=== PATIENT | female | born 1995 | race Caucasian/White ===

== ENCOUNTER 2016-12-30 14:05 | Emergency (ER) | payer SELFPAY ==
[~2016-12-30] VITALS: Ht 160 cm; Wt 70.5 kg
[~2016-12-30 14:05] MED LIST: ACET-1256 PO; FERR1TAB23 PO; IBUP-1050 PO
[2016-12-30 14:15] VITALS: TEMP 36.9; Ht 160 cm; Wt 70.5 kg
[2016-12-30 15:11] LABS: URINE APPEARANCE CLEAR (CLEAR); URINE BILIRUBIN NEG (NEG); URINE COLOR YELLOW; URINE EPITHELIAL CELL AUTO >30 /lpf (0-5); URINE NITRITE NEG (NEG); URINE PH 5.5 (4.5-7.5); URINE SPECIFIC GRAVITY 1.026 (1.000-1.030); UROBILINOGEN NEG (NEG); ZZUR CULT IF INDIC CLEAN CATCH YES
[2016-12-30 15:13] LABS: MANUAL MICROSCOPIC REQUIRED? NO; REVIEW REQ? NO
[2016-12-30] MEDS ORDERED: ELMCR EXT (15:51)
[2016-12-30] MEDS ORDERED: NITR1CAP16 PO (15:51)
--- NOTE | 2016-12-30 15:53 | EMERGENCY ROOM VISIT NOTE ---
History First contact with patient: 14:20 Chief Complaint: ILLNESS Stated Complaint: RASH, TIGHTNESS OF THROAT, SABRA., CLOGGED EARS History of Present Illness The patient is a 21 year old female who presents to the Emergency Room with multiple complaints. The patient reports that she has a rash on the inside of her right arm. She reports she also has several owens between her fingers. She reports that she was treated for scabies one month ago, and her symptoms now are similar. The patient also reports that she has had scratchiness in her throat, nasal congestion and a feeling of clogged ears. The symptoms have been ongoing for the past 2 days. She denies any cough, difficulty breathing or swallowing, neck pain or headache. Patient also reports that she feels she may have a yeast infection. She has had vaginal discharge for the past few days as well as some pain with urination. She has a history of severe UTIs and is unsure if this could be a vaginal infection or urinary tract infection. The patient denies any abdominal pain, nausea, vomiting, or changes in bowel movements. She denies any fevers/chills. Review of Systems A complete 10-point Review of Systems was discussed with the patient, with pertinent positives and negatives listed in the History of Present Illness. All remaining Review of Systems questions can be considered negative unless otherwise specified. Past Medical/Surgical History Medical Problems: (1) Drug overdose (2) Dysuria (3) Urinary tract infection (4) Urinary tract infection Surgical Problems: (1) Hx of tonsillectomy Family History Cancer Diabetes mellitus Gallbladder disease Heart disease Hypertension Kidney disease Kidney stones Lung disease Seizures Social History Smoking Status: Current Every Day Smoker Alcohol Use: none Drug Use: none Marital Status: in relationship Housing Status: lives with significant other Occupation Status: employed Current/Historical Medications Scheduled Levonorgestrel (Iud) (Mirena), 1 DOSE IU CONTINOUS Nitrofurantoin Monohyd Macro (Macrobid), 1 CAP PO BID Permethrin 5% (Elimite 5%), 0 EXT UD Allergies Coded Allergies: Penicillins (Verified Allergy, Severe, ANAPHYLAXIS, 12/30/16) Adhesives (Verified Allergy, Unknown, HIVES, 12/30/16) Doxycycline (Unverified Adverse Reaction, Intermediate, Vomiting, 12/30/16) Uncoded Allergies: BETH (Allergy, Mild, GI SYMPTOMS, 04/20/15) Physical Exam Vital Signs Date Time Temp Pulse Resp B/P Pulse Ox O2 Delivery O2 Flow Rate FiO2 12/30/16 16:04 70 18 112/72 97 12/30/16 14:15 36.9 94 18 120/80 100 Physical Exam VITALS: Vitals are noted on the nurse's note and reviewed by myself. Vital signs stable. GENERAL: This is a 21-year-old female, in no acute distress, nondiaphoretic, well-developed well-nourished. SKIN: There are multiple erythematous lesions in the webspaces of the fingers. There are several urticarial lesions in the right antecubital fossa. HEENT: Normocephalic. PERRLA. EOMI. Nares patent. Mucous membranes moist. Neck is supple without nuchal rigidity. HEART: Regular rate and rhythm without murmurs gallops or rubs. LUNGS: Clear to auscultation bilaterally without wheezes, rales or rhonchi. ABDOMEN: Positive bowel sounds x 4. Soft, nontender to palpation. PELVIC: External genitalia unremarkable. No lesions. There is a moderate amount of whitish discharge within the vaginal vault. No evidence of cervicitis. NEURO: Patient was alert and oriented to person place and time. Medical Decision & Procedures Laboratory Results Test 12/30/16 14:55 12/30/16 15:25 Urine Color YELLOW Urine Appearance CLEAR (CLEAR) Urine pH 5.5 (4.5-7.5) Urine Specific Reading 1.026 (1.000-1.030) Urine Protein NEG (NEG) Urine Glucose (UA) NEG (NEG) Urine Ketones NEG (NEG) Urine Occult Blood NEG (NEG) Urine Nitrite NEG (NEG) Urine Bilirubin NEG (NEG) Urine Urobilinogen NEG (NEG) Urine Leukocyte Esterase SMALL (NEG) Urine WBC (Auto) >30 /hpf (0-5) Urine RBC (Auto) 0-4 /hpf (0-4) Urine Hyaline Casts (Auto) 10-30 /lpf (0-5) Urine Epithelial Cells (Auto) >30 /lpf (0-5) Urine Bacteria (Auto) 2+ (NEG) Urine Test NEG (NEG) Date/Time Source Procedure Growth Status 12/30/16 15:25 Vaginal Swab Trichomonas Preparation - Final Complete Medical Decision Differential diagnosis includes scabies, urticaria, eczema, psoriasis, UTI, vaginal candidiasis, bacterial vaginosis, STI, urinary tract infection, strep pharyngitis, among others. The patient was evaluated as above. She presents with multiple complaints. She does appear to have scabies and will be prescribed permethrin for a second treatment. She has upper respiratory symptoms consistent with an upper respiratory and was informed that this is likely viral. Pelvic exam was performed and cultures were sent. The patient has evidence of a urinary tract infection and urinalysis is consistent with infection. She will be placed on Macrobid pending culture. The patient was instructed to follow-up with her primary care provider and MECHANICAL MAINTENANCE TECHNICIAN. She verbalized understanding of my assessment and treatment plan and was discharged home in good condition. Impression Primary Impression: UTI (urinary tract infection) Additional Impressions: Scabies Vaginal discharge Departure Information Dispostion Home / Self-Care Condition GOOD Prescriptions Nitrofurantoin Monohyd Macro (MACROBID) 100 Mg Cap 1 CAP PO BID for 5 Days, #10 CAP Prov: Julia Garnica PA-C 12/30/16 Permethrin 5% (Elimite 5%) 180 Appln/60 Gm Cr 0 EXT UD, #1 TUBE APPLY HEAD TO FOOT - LEAVE ON 8-14 HR - WASH OFF Prov: Julia Garnica PA-C 12/30/16 Referrals Josh Avalos, D.O. (PCP) Patient Instructions My [facility] Additional Instructions You have been treated in the Emergency Department for a Urinary Tract Infection (UTI). We will call you with culture results if they become positive in the next 1-2 days. You have been prescribed Macrobid to be taken twice daily. This is an antibiotic. All antibiotics have the potential to cause diarrhea. Stop this medication and contact a medical provider if you were to develop any significant adverse side effects including: wheezing, shortness of breath, passing out, vomiting, or a diffuse rash. Always take antibiotics as directed and COMPLETE the ENTIRE course regardless of the improvement of your symptoms. Use the permethrin as prescribed. Drink plenty of water and stay well hydrated. As with any trip to the Emergency Department, you should follow-up with your Primary Care Provider from today's visit. Return to the emergency department if your symptoms persist despite treatment plan outlined above or if the following symptoms occur: increased fevers, chills , low back pain, nausea/vomiting, or blood in your urine. Problem Qualifiers Primary Impression: UTI (urinary tract infection) Urinary tract infection type: site unspecified Hematuria presence: without hematuria Qualified Codes: N39.0 - Urinary tract infection, site not specified
[2016-12-30 16:04] VITALS: BP 112/72; PULSE 70; O2SAT 97
[2017-01-01 21:57] LABS: CHLAMYDIA TRACH RNA*** NOT DETECTED (NOT DETECTED); GC (NEIS GONORRHOEAE)RNA** DETECTED (NOT DETECTED)
[2017-07-24] MEDS ORDERED: LEVOIUD IU (15:52)
== END 2016-12-30 16:31 | disposition home or self-care (01) ==
LOC: C.EDB 14:06 → C.EDD 16:31
DX: N39.0 Urinary tract infection, site not specified (principal); B86 Scabies; N89.8 Other specified noninflammatory disorders of vagina; F17.210 Nicotine dependence, cigarettes, uncomplicated

== ENCOUNTER 2017-01-02 21:27 | Emergency (ER) | payer SELFPAY ==
[~2017-01-02] VITALS: Ht 160 cm; Wt 71.4 kg
[~2017-01-02 21:27] MED LIST changes: -ACET-1256 PO; +ELMCR EXT; -FERR1TAB23 PO; -IBUP-1050 PO; +NITR1CAP16 PO
[2017-01-02 21:32] VITALS: TEMP 36.9; Ht 160 cm; Wt 71.4 kg
[2017-01-02] MEDS ORDERED: METRONIDAZOLE 250 MG TAB PO STA (21:55)
[2017-01-02] MEDS ORDERED: AZITHROMYCIN 250 MG TAB PO STA (21:55)
[2017-01-02] MEDS ORDERED: CEFTRIAXONE SOD 350MG/ML 1 GM VIAL IM STA (21:55)
[2017-01-02] MEDS ORDERED: ONDANSETRON 4MG OD TAB PO ONE (22:00)
--- NOTE | 2017-01-02 22:04 | EMERGENCY ROOM VISIT NOTE ---
ED Visit Note First contact with patient: 21:37 CHIEF COMPLAINT: Called back to the emergency department HISTORY OF PRESENT ILLNESS: This 21-year-old female patient presents to the emergency department ambulatory for treatment regarding her culture results. The patient was seen here three days ago. She was diagnosed with a urinary tract infection and put on Macrobid. The urine culture grew out pansensitive Escherichia coli. The patient was also positive for gonorrhea. Additionally, she was positive for bacterial vaginosis. The patient returns for treatment. REVIEW OF SYSTEMS: A 10 system review of systems was completed with positives and pertinent negatives listed in the HPI. ALLERGIES: Adhesives, doxycycline, penicillin-the patient has never truly had penicillin but describes it as an allergy due to a family sensitivity of penicillin and the patient's family member states she has had Keflex in the past without any difficulty MEDICATIONS: Macrobid currently PMH: None SOCIAL HISTORY: The patient is a smoker PHYSICAL EXAM: VITALS: Vitals are noted on the nurse's note and reviewed by myself. Vital signs stable. GENERAL: This is a 21-year-old female, in no acute distress, nondiaphoretic, well-developed well-nourished. CARDIAC: Regular rate and rhythm. No rubs, murmurs or gallops LUNGS: Clear to auscultation bilaterally without wheezes, rales or rhonchi EMERGENCY DEPARTMENT COURSE: The patient was seen and examined. Previous visits were reviewed. The patient is afebrile. She presents to the emergency department for treatment of gonorrhea and bacterial vaginosis. She lists an allergy to penicillin but has tolerated Keflex in the past and does not have a true penicillin allergy but lists that as an allergy due to a family history of penicillin allergy. Therefore, she was given 250 mg IM Rocephin, 1 g oral Zithromax and will be started on Flagyl. She requests to have Flagyl pills instead of the MetroGel. She should follow-up with her family doctor next week. She should return with worsening symptoms. Problem List Medical Problems: (1) Drug overdose Status: Resolved (2) Dysuria Status: Resolved (3) Urinary tract infection Status: Resolved (4) Urinary tract infection Status: Resolved Surgical Problems: (1) Hx of tonsillectomy Status: Resolved Current/Historical Medications Scheduled Levonorgestrel (Iud) (Mirena), 1 DOSE IU CONTINOUS Metronidazole (Flagyl), 500 MG PO BID Nitrofurantoin Monohyd Macro (Macrobid), 1 CAP PO BID Allergies Coded Allergies: Penicillins (Verified Allergy, Severe, ANAPHYLAXIS, 01/02/17) Adhesives (Verified Allergy, Unknown, HIVES, 01/02/17) Doxycycline (Unverified Adverse Reaction, Intermediate, Vomiting, 01/02/17) Uncoded Allergies: BETH (Allergy, Mild, GI SYMPTOMS, 04/20/15) Vital Signs Date Time Temp Pulse Resp B/P Pulse Ox O2 Delivery O2 Flow Rate FiO2 01/02/17 22:40 76 18 122/75 98 01/02/17 21:32 36.9 88 18 134/86 99 Room Air Medications Administered Medications (Trade) Dose Ordered Sig/Radha Route Start Time Stop Time Status Last Admin Dose Admin Azithromycin (Zithromax Tab) 1,000 mg NOW STAT PO 01/02/17 21:55 01/02/17 21:57 DC 01/02/17 22:07 1,000 MG Ceftriaxone Sodium (Rocephin Im) 250 mg NOW STAT IM 01/02/17 21:55 01/02/17 21:57 DC 01/02/17 22:08 250 MG Ondansetron HCl (Zofran Odt) 4 mg ONE ONCE PO 01/02/17 22:00 01/02/17 22:01 DC 01/02/17 22:07 4 MG Metronidazole (Flagyl Tab) 500 mg NOW STAT PO 01/02/17 21:55 01/02/17 21:57 DC 01/02/17 22:07 500 MG Departure Information Impression Primary Impression: Gonorrhea Additional Impressions: Bacterial vaginitis Urinary tract infection Dispostion Home / Self-Care Condition GOOD Prescriptions Metronidazole (Flagyl) 500 Mg Tab 500 MG PO BID for 7 Days, #14 TAB Prov: Leida Espinosa PA-C 01/02/17 Referrals Josh Avalos, D.OEunice (PCP) Patient Instructions ED Gonorrhea Female, ED Vaginosis Bacterial, My [facility] Additional Instructions Continue the Macrobid until finished Flagyl every 12 hours for 7 days Notify your sexual contacts Return with any worsening symptoms; otherwise follow up with your family doctor or MATERIALS HANDLER next week Problem Qualifiers
[2017-01-02] MEDS ORDERED: METR-163 PO (22:36)
[2017-01-02 22:40] VITALS: BP 122/75; PULSE 76; O2SAT 98
--- NOTE | 2017-01-03 11:14 | Pharmacy Progress Note ---
ED Pharmacist Culture FollowUp Date of Service: Jan 03, 2017. Genital culture grew N gonorrhoeae, N gonorrhoeae RNA also detected. Patient returned to the ER on 01/02/17 for Rocephin 250mg IM x 1 and Azithromycin 1gm PO x 1. No further action required at this time. Genital culture also grew gardnerella vaginalis and the provider who had seen her felt she had symptoms consistent w/ BV; she was discharge with Rx for Flagyl 500mg TID x 7 days. No further action required. Urine cx grew E coli. This organism was sensitive to the Macrobid she was prescribed (100mg PO BID x 5 days). No further action required.
[2017-07-24] MEDS ORDERED: LEVOIUD IU (15:52)
== END 2017-01-02 22:29 | disposition home or self-care (01) ==
LOC: C.EDB 21:30 → C.EDD 22:29
DX: A54.9 Gonococcal infection, unspecified (principal); N76.0 Acute vaginitis; N39.0 Urinary tract infection, site not specified; F17.210 Nicotine dependence, cigarettes, uncomplicated; Z79.2 Long term (current) use of antibiotics

== ENCOUNTER 2017-03-11 13:11 | Emergency (ER) | payer BC, OTHER ==
[~2017-03-11] VITALS: Ht 160 cm; Wt 73.8 kg
[2017-03-11 13:13] VITALS: TEMP 37.2; Ht 160 cm; Wt 73.8 kg
[2017-03-11] MEDS ORDERED: IBUP-1050 PO (13:20)
[2017-03-11] MEDS ORDERED: ACET-1256 PO (13:21)
[2017-03-11] MEDS ORDERED: SODIUM CHLORIDE 0.9% 1000ML 1,000 ML IV STA (13:29)
[2017-03-11] MEDS ORDERED: ONDANSETRON INJ 2 MG/ML 2 ML VIAL IV STA (13:29)
[2017-03-11 14:01] LABS: BASO % 0.3 %; BASO ABS # 0.03 K/uL (0-0.2); COMPLETE YES; EOS % 0.3 %; HEMATOCRIT 43.3 % (37-47); IG% 0.2 %; LYMPH % 16.4 %; LYMPH ABS # 1.71 K/uL (1.2-3.4); MEAN CELL VOLUME 92.1 fL (80-100); MEAN CORPUSCULAR HEMOGLOBIN 31.9 pg (25-34); MEAN CORPUSCULAR HGB CONC 34.6 g/dl (32-36); MEAN PLATELET VOLUME 9.8 fL (7.4-10.4); NEUT % 70.8 %; PLATELET COUNT 257 K/uL (130-400)
[2017-03-11 14:21] LABS: BUN/CREATININE RATIO 9.7 (10-20); CALCIUM 8.6 mg/dl (8.5-10.1); CREATININE 0.92 mg/dl (0.60-1.20); POTASSIUM 3.8 mmol/L (3.5-5.1)
[2017-03-11 14:23] LABS: ALB/GLOB RATIO 1.1 (0.9-2)
--- NOTE | 2017-03-11 14:59 | DIAGNOSTIC IMAGING REPORT ---
CHEST 2 VIEWS ROUTINE CLINICAL HISTORY: cough CHEST PRESSURE COMPARISON STUDY: 08/31/2016 FINDINGS: The cardiac and mediastinal contours are normal. There is no evidence of focal pulmonary consolidation. There is no evidence of failure. No pleural effusions are visualized.[ IMPRESSION: No active disease in the chest. Electronically signed by: Ayden Huff M.D. 03/11/2017 2:57 PM Dictated Date/Time: 03/11/2017 2:56 PM
[2017-03-11 16:15] VITALS: BP 165/85; PULSE 98; O2SAT 98
--- NOTE | 2017-03-11 16:18 | EMERGENCY ROOM VISIT NOTE ---
History First contact with patient: 13:17 Chief Complaint: FLU LIKE SX Stated Complaint: COUGH,BODY ACHES,SORE THROAT,NAUSEA History of Present Illness The patient is a 21 year old female who presents to the Emergency Room with complaints of flulike symptoms. She reports that she has had sore throat, cough , chest tightness, nausea, diarrhea and body aches for the past 5 days. She states that she had to leave work today due to symptoms. She did not receive a flu vaccine this year. She denies any sick contacts. She states she has had fevers up to 102F. Has been taking ibuprofen and Tylenol for her symptoms and states she last took Tylenol just prior to arrival. She denies any chest pain, abdominal pain, vomiting, headache or neck pain. Review of Systems A complete 10-point Review of Systems was discussed with the patient, with pertinent positives and negatives listed in the History of Present Illness. All remaining Review of Systems questions can be considered negative unless otherwise specified. Past Medical/Surgical History Medical Problems: (1) Drug overdose (2) Dysuria (3) Urinary tract infection (4) Urinary tract infection Surgical Problems: (1) Hx of tonsillectomy Family History Cancer Diabetes mellitus Gallbladder disease Heart disease Hypertension Kidney disease Kidney stones Lung disease Seizures Social History Smoking Status: Current Every Day Smoker Alcohol Use: none Drug Use: none Marital Status: in relationship Housing Status: lives with significant other Occupation Status: employed Current/Historical Medications Scheduled Acetaminophen (Tylenol), Unknown Dose PO DAILY Ibuprofen (Advil), 800 MG PO DAILY Levonorgestrel (Iud) (Mirena), 1 DOSE IU CONTINOUS Allergies Coded Allergies: Penicillins (Verified Allergy, Severe, ANAPHYLAXIS, 03/11/17) PER PROVIDER NOTE 01/02/17, PT NEVER WAS GIVEN PCN DUE TO FAMILY H/O ANAPHYLAXIS. SHE HAS TOLERATED KEFLEX AND ROCEPHIN Adhesives (Verified Allergy, Unknown, HIVES, 03/11/17) Doxycycline (Unverified Adverse Reaction, Intermediate, Vomiting, 03/11/17) Uncoded Allergies: BETH (Allergy, Mild, GI SYMPTOMS, 04/20/15) Physical Exam Vital Signs Date Time Temp Pulse Resp B/P Pulse Ox O2 Delivery O2 Flow Rate FiO2 03/11/17 16:15 98 18 165/85 98 Room Air 03/11/17 13:13 37.2 112 20 128/84 94 Room Air Physical Exam VITALS: Vitals are noted on the nurse's note and reviewed by myself. Vital signs stable. GENERAL: This is a 21-year-old female, in no acute distress, nondiaphoretic, well-developed well-nourished. SKIN: The skin was without rashes. HEAD: Normocephalic atraumatic. EARS: External auditory canals clear, tympanic membranes pearly mullen without erythema or effusion bilaterally. EYES: Pupils equal round and reactive to light and accommodation. Conjunctivae without injection, sclerae without icterus. NOSE: Patent, turbinates without inflammation or discharge. MOUTH: Mucous membranes moist. Tonsils are surgically absent. Pharynx without erythema or exudate. NECK: Supple without nuchal rigidity. No lymphadenopathy. HEART: Regular rate and rhythm without murmurs gallops or rubs. LUNGS: Clear to auscultation bilaterally without wheezes, rales or rhonchi. No retractions or accessory muscle use. ABDOMEN: Soft, nontender to palpation. NEURO: Patient was alert and oriented to person place and time. Medical Decision & Procedures ER Provider Diagnostic Interpretation: CHEST 2 VIEWS ROUTINE CLINICAL HISTORY: cough CHEST PRESSURE COMPARISON STUDY: 08/31/2016 FINDINGS: The cardiac and mediastinal contours are normal. There is no evidence of focal pulmonary consolidation. There is no evidence of failure. No pleural effusions are visualized.[ IMPRESSION: No active disease in the chest. Laboratory Results 03/11/17 13:40 Red Blood Count 4.70, Mean Corpuscular Volume 92.1, Mean Corpuscular Hemoglobin 31.9, Mean Corpuscular Hemoglobin Concent 34.6, Mean Platelet Volume 9.8, Neutrophils (%) (Auto) 70.8, Lymphocytes (%) (Auto) 16.4, Monocytes (%) (Auto) 12.0, Eosinophils (%) (Auto) 0.3, Basophils (%) (Auto) 0.3, Neutrophils # (Auto ) 7.36, Lymphocytes # (Auto) 1.71, Monocytes # (Auto) 1.25, Eosinophils # (Auto ) 0.03, Basophils # (Auto) 0.03 03/11/17 13:40 Test 03/11/17 13:40 03/11/17 13:50 White Blood Count 10.40 K/uL (4.8-10.8) Red Blood Count 4.70 M/uL (4.2-5.4) Hemoglobin 15.0 g/dL (12.0-16.0) Hematocrit 43.3 % (37-47) Mean Corpuscular Volume 92.1 fL (80-100) Mean Corpuscular Hemoglobin 31.9 pg (25-34) Mean Corpuscular Hemoglobin Concent 34.6 g/dl (32-36) Platelet Count 257 K/uL (130-400) Mean Platelet Volume 9.8 fL (7.4-10.4) Neutrophils (%) (Auto) 70.8 % Lymphocytes (%) (Auto) 16.4 % Monocytes (%) (Auto) 12.0 % Eosinophils (%) (Auto) 0.3 % Basophils (%) (Auto) 0.3 % Neutrophils # (Auto) 7.36 K/uL (1.4-6.5) Lymphocytes # (Auto) 1.71 K/uL (1.2-3.4) Monocytes # (Auto) 1.25 K/uL (0.11-0.59) Eosinophils # (Auto) 0.03 K/uL (0-0.5) Basophils # (Auto) 0.03 K/uL (0-0.2) RDW Standard Deviation 44.3 fL (36.4-46.3) RDW Coefficient of Variation 13.0 % (11.5-14.5) Immature Granulocyte % (Auto) 0.2 % Immature Granulocyte # (Auto) 0.02 K/uL (0.00-0.02) Anion Gap 6.0 mmol/L (3-11) Est Creatinine Clear Calc Drug Dose 92.3 ml/min Estimated GFR () 102.4 Estimated GFR (Non- 88.4 BUN/Creatinine Ratio 9.7 (10-20) Calcium Level 8.6 mg/dl (8.5-10.1) Total Bilirubin 0.4 mg/dl (0.2-1) Aspartate Amino Transf (AST/SGOT) 11 U/L (15-37) Alanine Aminotransferase (ALT/SGPT) 23 U/L (12-78) Alkaline Phosphatase 97 U/L (45-117) Total Protein 7.3 gm/dl (6.4-8.2) Albumin 3.8 gm/dl (3.4-5.0) Globulin 3.5 gm/dl (2.5-4.0) Albumin/Globulin Ratio 1.1 (0.9-2) Monoscreen NEG (NEG) Influenza Type A Antigen Neg for Influ A (NEG) Influenza Type B Antigen Neg for Influ B (NEG) Medications Administered Medications (Trade) Dose Ordered Sig/Radha Route Start Time Stop Time Status Last Admin Dose Admin Sodium Chloride (Nss 1000ml) 1,000 ml @ 999 mls/hr Q1H1M STAT IV 03/11/17 13:29 03/11/17 14:29 DC 03/11/17 13:53 999 MLS/HR Ondansetron HCl (Zofran Inj) 4 mg NOW STAT IV 03/11/17 13:29 03/11/17 13:30 DC 03/11/17 13:53 4 MG ED Course The patient was evaluated as above. Labs were drawn and IV access was obtained. Patient was medicated with 1 L normal saline solution and 4 mg Zofran. Chest x-ray was performed and read by radiology as above. Patient was reevaluated and felt much better. Findings were discussed with the patient. Discharge instructions were reviewed with the patient. The patient verbalized understanding of my assessment and treatment plan and was discharged home in good condition. Medical Decision Differential diagnosis includes influenza, mononucleosis, pneumonia, upper respiratory infection, viral illness, among others. The patient is a 21-year-old female who presents today complaining of flulike symptoms. Labs revealed no leukocytosis, anemia or concerning electrolyte abnormalities. Monospot and influenza tests were negative. The patient was given IV fluids and Zofran with relief. She likely has a viral flulike illness. Conservative measures were discussed with the patient. Based on the patient's presentation and work up, I feel the patient is stable for outpatient treatment. The patient was educated to the emergency department for any worsening of their current condition or new/concerning symptoms. She will follow up with her primary care provider as needed. Impression Primary Impression: Influenza-like symptoms Departure Information Dispostion Home / Self-Care Condition GOOD Referrals Josh Avalos D.O. (PCP) Patient Instructions [facility] Additional Instructions Rest and drink plenty of fluids. For pain control, you can use the following [id number] medicines (if >12 yo): - Regular strength (325mg/tab) Tylenol (acetaminophen) 2 tabs every 4-6 hours as needed. Do not exceed 12 tablets in a 24 hour period. Avoid taking more than 4 grams (4000 mg) of Tylenol per day. This includes any other sources of acetaminophen you may take on a regular basis. - Regular strength (200 mg/tab) Advil (ibuprofen) 1-2 tabs every 4-6 hours as needed. Do not exceed a dose of 3200 mg per day. Follow-up with your PCP as needed.
[2017-10-05] MEDS ORDERED: LEVOIUD IU (15:52)
== END 2017-03-11 16:30 | disposition home or self-care (01) ==
LOC: C.EDB 13:12 → C.EDC 16:30
DX: R69 Illness, unspecified (principal); Z83.3 Family history of diabetes mellitus; Z82.49 Family history of ischemic heart disease and other diseases of the circulatory system; Z82.0 Family history of epilepsy and other diseases of the nervous system; F17.200 Nicotine dependence, unspecified, uncomplicated

== ENCOUNTER 2017-07-04 15:33 | Emergency (ER) | payer BC ==
[~2017-07-04] VITALS: Ht 160 cm; Wt 76.0 kg
[~2017-07-04 15:33] MED LIST changes: +ACET-1256 PO; -ELMCR EXT; +IBUP-1050 PO; -NITR1CAP16 PO
[2017-07-04 15:38] VITALS: TEMP 36.9; Ht 160 cm; Wt 76.0 kg
[2017-07-04 15:55] LABS: MANUAL MICROSCOPIC REQUIRED? NO; REVIEW REQ? NO; URINE APPEARANCE CLEAR (CLEAR); URINE BILIRUBIN NEG (NEG); URINE COLOR YELLOW; URINE EPITHELIAL CELL AUTO >30 /lpf (0-5); URINE NITRITE NEG (NEG); URINE PH 6.5 (4.5-7.5); URINE SPECIFIC GRAVITY 1.014 (1.000-1.030); UROBILINOGEN NEG (NEG); ZZUR CULT IF INDIC CLEAN CATCH YES
[2017-07-04] MEDS ORDERED: SODIUM CHLORIDE 0.9% 1000ML 1,000 ML IV STA (16:01)
[2017-07-04] MEDS ORDERED: ONDANSETRON INJ 2 MG/ML 2 ML VIAL IV STA (16:01)
--- NOTE | 2017-07-04 16:13 | EMERGENCY ROOM VISIT NOTE ---
History First contact with patient: 15:42 Chief Complaint: URINARY SYMPTOMS Stated Complaint: UTI - KIDNEY INFECTION SYMPTOMS Nursing Triage Summary: Back pain and urinary symptoms History of Present Illness The patient is a 21 year old female who presents to the Emergency Room with complaints of bilateral low back pain and urinary frequency/urgency/suprapubic discomfort has been going on for about one week. Associated nausea as well, but no vomiting. She has not tried any medications for her symptoms. She also believes she may be dehydrated, she states she has not been eating and drinking very well recently due to a in the family. Patient states she is prone to frequent UTIs and gets them about 4 times a year, her last infection was in December of this year and she believe she was treated with Bactrim. She states that she was trying to get an appointment set up with her PCP today, however her friend had a seizure so she came with her friend to the ER and decided to check in and be evaluated here. She denies any fevers or chills, chest pain, shortness of breath, dizziness or passing out, vomiting, diarrhea, blood in the urine, vaginal discharge or unusual bleeding, or rash. She reports a history of STD infections in the past, states she has not been sexually active for several months and is not concerned about any STDs at this time. Review of Systems A complete 10 point review of systems was reviewed with the patient with pertinent positives and negatives as per history of present illness. All else were negative. Past Medical/Surgical History Medical Problems: (1) Drug overdose (2) Dysuria (3) Urinary tract infection (4) Urinary tract infection Surgical Problems: (1) Hx of tonsillectomy Family History Cancer Diabetes mellitus Gallbladder disease Heart disease Hypertension Kidney disease Kidney stones Lung disease Seizures Social History Smoking Status: Current Every Day Smoker Alcohol Use: none Drug Use: none Marital Status: in relationship Housing Status: lives with significant other Occupation Status: employed Current/Historical Medications Scheduled Levonorgestrel (Iud) (Mirena), 20 MCG IU UD Sulfa/Trimethoprim (Bactrim Ds 800MG/160MG), 1 TAB PO BID Physical Exam Vital Signs Date Time Temp Pulse Resp B/P (MAP) Pulse Ox O2 Delivery O2 Flow Rate FiO2 07/04/17 19:23 96 16 111/68 95 07/04/17 18:39 82 16 102/66 95 Room Air 07/04/17 16:52 77 18 101/67 98 Room Air 07/04/17 15:38 36.9 107 16 125/90 96 Room Air Physical Exam CONSTITUTIONAL: No acute distress. Mildly dehydrated, otherwise well appearing and well nourished. Alert and oriented X 4 with normal affect. HEENT: Normocephalic, atraumatic. Pupils equal, round and reactive to light, EOMI. TMs normal. Pharynx normal. Tacky mucous membranes. NECK: Supple, full active range of motion without discomfort. RESPIRATORY: Clear to auscultation bilaterally with no wheezing, crackles, rhonchi or stridor. Equal expansion bilaterally. CARDIOVASCULAR: Tachycardia. Regular rhythm with no murmurs, rubs or gallops. Normal peripheral perfusion. No edema. GASTROINTESTINAL: Mild suprapubic tenderness, abdomen is otherwise nontender. No CVA tenderness. Soft, nondistended. Bowel sounds present in all quadrants. MUSCULOSKELETAL: Full range of motion of all joints without discomfort. INTEGUMENTARY: No rash or other significant dermatologic conditions noted. NEUROLOGIC: Cranial nerves II-XII grossly intact. No focal neurologic deficits noted. Medical Decision & Procedures Laboratory Results 07/04/17 16:10 Red Blood Count 4.99, Mean Corpuscular Volume 91.0, Mean Corpuscular Hemoglobin 31.5, Mean Corpuscular Hemoglobin Concent 34.6, Mean Platelet Volume 9.9, Neutrophils (%) (Auto) 54.8, Lymphocytes (%) (Auto) 35.5, Monocytes (%) (Auto) 6.5, Eosinophils (%) (Auto) 2.5, Basophils (%) (Auto) 0.4, Neutrophils # (Auto) 5.70, Lymphocytes # (Auto) 3.70, Monocytes # (Auto) 0.68, Eosinophils # (Auto) 0.26, Basophils # (Auto) 0.04 07/04/17 16:10 Test 07/04/17 15:40 07/04/17 16:10 Urine Color YELLOW Urine Appearance CLEAR (CLEAR) Urine pH 6.5 (4.5-7.5) Urine Specific [place] 1.014 (1.000-1.030) Urine Protein NEG (NEG) Urine Glucose (UA) NEG (NEG) Urine Ketones NEG (NEG) Urine Occult Blood NEG (NEG) Urine Nitrite NEG (NEG) Urine Bilirubin NEG (NEG) Urine Urobilinogen NEG (NEG) Urine Leukocyte Esterase SMALL (NEG) Urine WBC (Auto) 1-5 /hpf (0-5) Urine RBC (Auto) 0-4 /hpf (0-4) Urine Hyaline Casts (Auto) 1-5 /lpf (0-5) Urine Epithelial Cells (Auto) >30 /lpf (0-5) Urine Bacteria (Auto) 2+ (NEG) Urine Test NEG (NEG) White Blood Count 10.41 K/uL (4.8-10.8) Red Blood Count 4.99 M/uL (4.2-5.4) Hemoglobin 15.7 g/dL (12.0-16.0) Hematocrit 45.4 % (37-47) Mean Corpuscular Volume 91.0 fL (80-100) Mean Corpuscular Hemoglobin 31.5 pg (25-34) Mean Corpuscular Hemoglobin Concent 34.6 g/dl (32-36) Platelet Count 353 K/uL (130-400) Mean Platelet Volume 9.9 fL (7.4-10.4) Neutrophils (%) (Auto) 54.8 % Lymphocytes (%) (Auto) 35.5 % Monocytes (%) (Auto) 6.5 % Eosinophils (%) (Auto) 2.5 % Basophils (%) (Auto) 0.4 % Neutrophils # (Auto) 5.70 K/uL (1.4-6.5) Lymphocytes # (Auto) 3.70 K/uL (1.2-3.4) Monocytes # (Auto) 0.68 K/uL (0.11-0.59) Eosinophils # (Auto) 0.26 K/uL (0-0.5) Basophils # (Auto) 0.04 K/uL (0-0.2) RDW Standard Deviation 42.2 fL (36.4-46.3) RDW Coefficient of Variation 12.7 % (11.5-14.5) Immature Granulocyte % (Auto) 0.3 % Immature Granulocyte # (Auto) 0.03 K/uL (0.00-0.02) Anion Gap 5.0 mmol/L (3-11) Est Creatinine Clear Calc Drug Dose 105.0 ml/min Estimated GFR () 117.7 Estimated GFR (Non- 101.6 BUN/Creatinine Ratio 11.1 (10-20) Calcium Level 9.4 mg/dl (8.5-10.1) Medications Administered Medications (Trade) Dose Ordered Sig/Radha Route Start Time Stop Time Status Last Admin Dose Admin Ondansetron HCl (Zofran Inj) 4 mg NOW STAT IV 07/04/17 16:01 07/04/17 16:03 DC 07/04/17 16:54 4 MG Sodium Chloride 1,000 ml @ 999 mls/hr Q1H1M STAT IV 07/04/17 16:01 07/04/17 17:01 DC 07/04/17 16:54 999 MLS/HR Ketorolac Tromethamine (Toradol Inj) 15 mg NOW STAT IV 07/04/17 18:32 07/04/17 18:33 DC 07/04/17 18:38 15 MG Trimethoprim/ Sulfamethoxazole (Septra Ds 800/ 160MG Tab) 1 tab NOW STAT PO 07/04/17 18:58 07/04/17 19:00 DC 07/04/17 19:20 1 TAB Medical Decision CC: Patient presenting with complaint of bilateral low back pain and urinary symptoms Interpretation of Labs: No leukocytosis, no anemia, no significant electrolyte abnormalities, normal renal function. UA is not convincing for UTI, however given symptoms will treat and urine culture pending. Differential Diagnosis: Includes, but not limited to UTI, pyelonephritis, musculoskeletal pain, PID, STD/STI, among others. Medication Reconciliation: I attest that I have personally reviewed the patient' s current medication list. Vital signs review: I reviewed the patient's vital signs and interpret them as follows: T: Afebrile; BP: normotensive; HR: tachycardic; RR: WNL; Pulse Ox: WNL on RA. Summary: Patient was evaluated at bedside, history of physical exam performed. Patient is alert, in no acute distress, sitting calmly in the stretcher. Mild suprapubic tenderness on exam, no CVA tenderness on exam. Patient declined pelvic exam, states she is not concerned for STI. Orders were placed at bedside for basic labs, UA and culture, IV fluids for hydration, IV zofran and toradol for symptoms. Labs reviewed as above and are unremarkable. Urinalysis shows bacteria and small leuk esterase, however only small WBCs and many epithelial cells, which may represent contamination rather than a true infection. Patient reports feeling much better after IV fluids and medications, states her back pain is now gone. Tachycardia also improved. Given the patient's report of frequent UTIs and symptomatic, will treat her. I do not feel that the patient has pyelonephritis at this time, so will only dose for UTI. I did instruct her to follow up with her PCP closely and to return if her symptoms worsen, she verbalized understanding. Patient discharged home in stable condition and ambulatory. Impression Primary Impression: Symptoms of urinary tract infection Departure Information Dispostion Home / Self-Care Condition GOOD Prescriptions Sulfa/Trimethoprim (Bactrim Ds 800MG/160MG) Tab 1 TAB PO BID for 3 Days, #6 TAB Prov: Raquel Ennis CRNP 07/04/17 Referrals Josh Avalos, D.O. (PCP) Patient Instructions ED UTI Cystitis Female, My [facility] Additional Instructions You have been treated in the Emergency Department for a Urinary Tract Infection (UTI). You have been prescribed Bactrim to be taken twice a day for 3 days. This is an antibiotic. All antibiotics have the potential to cause diarrhea. Stop this medication and contact a medical provider if you were to develop any significant adverse side effects including: wheezing, shortness of breath, passing out, vomiting, or a diffuse rash. Always take antibiotics as directed and COMPLETE the ENTIRE course regardless of the improvement of your symptoms. Drink plenty of water and stay well hydrated. As with any trip to the Emergency Department, you should follow-up with your Primary Care Provider from today's visit. Return to the emergency department if your symptoms persist despite treatment plan outlined above or if the following symptoms occur: increased fevers, chills , low back pain, severe nausea/vomiting, or blood in your urine.
[2017-07-04 18:14] LABS: BASO % 0.4 %; BASO ABS # 0.04 K/uL (0-0.2); COMPLETE YES; EOS % 2.5 %; HEMATOCRIT 45.4 % (37-47); IG% 0.3 %; LYMPH % 35.5 %; MEAN CORPUSCULAR HEMOGLOBIN 31.5 pg (25-34); MEAN CORPUSCULAR HGB CONC 34.6 g/dl (32-36); MEAN PLATELET VOLUME 9.9 fL (7.4-10.4); MONO % 6.5 %; NEUT % 54.8 %; PLATELET COUNT 353 K/uL (130-400); RED BLOOD COUNT 4.99 M/uL (4.2-5.4); WHITE BLOOD COUNT 10.41 K/uL (4.8-10.8)
[2017-07-04 18:30] LABS: BUN/CREATININE RATIO 11.1 (10-20); CALCIUM 9.4 mg/dl (8.5-10.1); CREATININE 0.82 mg/dl (0.60-1.20); POTASSIUM 3.8 mmol/L (3.5-5.1)
[2017-07-04] MEDS ORDERED: KETOROLAC TROMETHAMINE 30 MG/ML VIAL IV STA (18:32)
[2017-07-04] MEDS ORDERED: SULFAMETHOXAZOLE/TRIMETHOPRIM DS 800/160MG TAB PO STA (18:58)
[2017-07-04] MEDS ORDERED: SULF800T23 PO (18:58)
[2017-07-04 19:23] VITALS: BP 111/68; PULSE 96; O2SAT 95
[2017-07-24] MEDS ORDERED: LEVOIUD IU (15:52)
== END 2017-07-04 19:24 | disposition home or self-care (01) ==
LOC: C.EDB 15:34 → C.EDD 19:24
DX: M54.5 Low back pain (principal); R35.0 Frequency of micturition; R39.15 Urgency of urination; R10.30 Lower abdominal pain, unspecified; F17.200 Nicotine dependence, unspecified, uncomplicated; Z87.440 Personal history of urinary (tract) infections; Z83.3 Family history of diabetes mellitus; Z82.49 Family history of ischemic heart disease and other diseases of the circulatory system; Z82.0 Family history of epilepsy and other diseases of the nervous system; Z84.1 Family history of disorders of kidney and ureter; R00.0 Tachycardia, unspecified

== ENCOUNTER 2017-07-24 21:45 | Emergency (ER) | payer BC, OTHER ==
[~2017-07-24] VITALS: Ht 160 cm; Wt 77.5 kg
[~2017-07-24 21:45] MED LIST changes: -ACET-1256 PO; -IBUP-1050 PO; +LEVOIUD IU
[2017-07-24 21:48] VITALS: TEMP 36.8; Ht 160 cm; Wt 77.5 kg
[2017-07-24] MEDS ORDERED: SODIUM CHLORIDE 0.9% 1000ML 1,000 ML IV STA ×2 (22:07)
[2017-07-24] MEDS ORDERED: MoRPHine SULFATE 4 MG/ML 1 ML CARP\\VIAL IV STA (22:07)
[2017-07-24] MEDS ORDERED: ONDANSETRON INJ 2 MG/ML 2 ML VIAL IV STA (22:07)
[2017-07-24] MEDS ORDERED: OPTIRAY 320 IV PRN (22:15)
[2017-07-24] MEDS ORDERED: HYDR-5688 PO (22:34)
[2017-07-24] MEDS ORDERED: BACL10TA PO (22:34)
[2017-07-24 22:43] LABS: BASO % 0.2 %; BASO ABS # 0.02 K/uL (0-0.2); COMPLETE YES; HEMATOCRIT 45.6 % (37-47); IG% 0.1 %; LYMPH % 23.7 %; LYMPH ABS # 2.57 K/uL (1.2-3.4); MEAN CORPUSCULAR HEMOGLOBIN 31.5 pg (25-34); MEAN CORPUSCULAR HGB CONC 34.6 g/dl (32-36); MEAN PLATELET VOLUME 9.7 fL (7.4-10.4); MONO % 8.5 %; NEUT % 65.5 %; PLATELET COUNT 319 K/uL (130-400); RED BLOOD COUNT 5.01 M/uL (4.2-5.4); WHITE BLOOD COUNT 10.86 K/uL (4.8-10.8)
[2017-07-24 22:47] LABS: URINE APPEARANCE CLEAR (CLEAR); URINE BILIRUBIN NEG (NEG); URINE COLOR YELLOW; URINE NITRITE NEG (NEG); URINE PH 5.5 (4.5-7.5); URINE SPECIFIC GRAVITY 1.014 (1.000-1.030); UROBILINOGEN NEG (NEG); ZZUR CULT IF INDIC CLEAN CATCH NO
[2017-07-24 22:48] LABS: MANUAL MICROSCOPIC REQUIRED? NO; REVIEW REQ? NO
[2017-07-24] MEDS ORDERED: DiphenhydrAMINE HCL 50 MG/ML VIAL IV STA (23:02)
[2017-07-24 23:06] LABS: ALKALINE PHOSPHATASE 98 U/L (45-117); ALT/SGPT 21 U/L (12-78); AST/SGOT 14 U/L (15-37); BLOOD UREA NITROGEN 8 mg/dl (7-18); BUN/CREATININE RATIO 10.1 (10-20); CALCIUM 9.5 mg/dl (8.5-10.1); CARBON DIOXIDE 25 mmol/L (21-32); CHLORIDE 107 mmol/L (98-107); CREATININE 0.79 mg/dl (0.60-1.20); GLUCOSE 96 mg/dl (70-99); SODIUM 139 mmol/L (136-145)
[2017-07-24 23:41] LABS: PREG INTERNAL NEGATIVE QC NEG CLEAR BACKGROUND; PREG INTERNAL POSITIVE QC POS CONTROL LINE
--- NOTE | 2017-07-25 00:49 | EMERGENCY ROOM VISIT NOTE ---
History First contact with patient: 21:57 Chief Complaint: ABDOMINAL PAIN Stated Complaint: PAIN RT LOWER SIDE, DIZZINESS,NAUSEA,MILD FEVER Nursing Triage Summary: Severe pain in RLQ, radiation to back. Stabbing pain. Started 1-1/2 weeks ago, progressively worse. Dizzy, nausea. Took hydrocodone for pain last night, didn' t help. Took muscle relaxer today without relief. History of Present Illness The patient is a 21 year old female who presents to the Emergency Room with complaints of right lower quadrant pain for the past few days that is steadily getting worse. Patient had intermittent abdominal pain for week and half that now localized to the right lower quadrant. Nothing makes it better or worse. Pain currently 7 out of 10. It does not radiate. Patient complains of nausea and lightheadedness. Patient denies chance for , urinary symptoms, back pain, fevers, vomiting, diarrhea, vaginal itching or discharge. Review of Systems See HPI for pertinent positives & negatives. A total of 10 systems reviewed and were otherwise negative. Past Medical/Surgical History Medical Problems: (1) Drug overdose (2) Dysuria (3) Urinary tract infection (4) Urinary tract infection Surgical Problems: (1) Hx of tonsillectomy Family History Cancer Diabetes mellitus Gallbladder disease Heart disease Hypertension Kidney disease Kidney stones Lung disease Seizures Social History Smoking Status: Current Every Day Smoker Alcohol Use: none Drug Use: none Marital Status: in relationship Housing Status: lives with significant other Occupation Status: employed Current/Historical Medications Scheduled Levonorgestrel (Iud) (Mirena), 20 MCG IU UD Scheduled PRN Baclofen (Lioresal), 10 MG PO TID PRN for Muscle Relaxer Hydrocodone/Acetaminophen 5MG/325MG ([place] 5MG/325MG), 1 TABLET PO UD PRN for Pain Physical Exam Vital Signs Date Time Temp Pulse Resp B/P (MAP) Pulse Ox O2 Delivery O2 Flow Rate FiO2 07/25/17 00:01 114/81 07/24/17 23:50 78 19 99 07/24/17 23:48 124/76 07/24/17 23:20 59 17 99 07/24/17 23:15 64 19 98 07/24/17 23:01 126/83 07/24/17 23:00 75 14 98 07/24/17 22:45 70 98 07/24/17 22:36 70 07/24/17 22:05 135/90 07/24/17 21:48 36.8 80 18 139/86 96 Room Air Physical Exam VITALS: Vitals are noted on the nurse's note and reviewed by myself. Vital signs stable. GENERAL: Pleasant female, in no acute distress, nondiaphoretic, well-developed well-nourished. SKIN: The skin was without rashes, erythema, edema, or bruising. There is no tenting of the skin. Capillary reflex less than 2 seconds. HEAD: Normocephalic atraumatic. EARS: External auditory canals clear, tympanic membranes pearly mullen without erythema or effusion bilaterally. EYES: Pupils equal round and reactive to light and accommodation. Conjunctivae without injection, sclerae without icterus. Extraocular movements intact. NOSE: Patent, turbinates without inflammation or discharge. MOUTH: Mucous membranes moist. Pharynx without erythema or exudate. Uvula midline. Airway patent. Tongue does not deviate. NECK: Supple without nuchal rigidity. No lymphadenopathy. No thyromegaly. Cervical spine is nontender. No JVD. HEART: Regular rate and rhythm without murmurs gallops or rubs. LUNGS: Clear to auscultation bilaterally without wheezes, rales or rhonchi. No dullness to percussion. No retractions or accessory muscle use. ABDOMEN: Positive bowel sounds x 4. Normal tympanic percussion. Soft, tender to palpation right lower quadrant, no CVA tenderness, without masses or organomegaly. Sandoval sign negative. No guarding or rebound tenderness. MUSCULOSKELETAL: No muscle atrophy, erythema, or edema noted. NEURO: Patient was alert and oriented to person place and time. Normal sensation to light and sharp touch. No focal neurological deficits. Medical Decision & Procedures Laboratory Results 07/24/17 22:30 Red Blood Count 5.01, Mean Corpuscular Volume 91.0, Mean Corpuscular Hemoglobin 31.5, Mean Corpuscular Hemoglobin Concent 34.6, Mean Platelet Volume 9.7, Neutrophils (%) (Auto) 65.5, Lymphocytes (%) (Auto) 23.7, Monocytes (%) (Auto) 8.5, Eosinophils (%) (Auto) 2.0, Basophils (%) (Auto) 0.2, Neutrophils # (Auto) 7.12, Lymphocytes # (Auto) 2.57, Monocytes # (Auto) 0.92, Eosinophils # (Auto) 0.22, Basophils # (Auto) 0.02 07/24/17 22:30 Test 07/24/17 22:30 White Blood Count 10.86 K/uL (4.8-10.8) Red Blood Count 5.01 M/uL (4.2-5.4) Hemoglobin 15.8 g/dL (12.0-16.0) Hematocrit 45.6 % (37-47) Mean Corpuscular Volume 91.0 fL (80-100) Mean Corpuscular Hemoglobin 31.5 pg (25-34) Mean Corpuscular Hemoglobin Concent 34.6 g/dl (32-36) Platelet Count 319 K/uL (130-400) Mean Platelet Volume 9.7 fL (7.4-10.4) Neutrophils (%) (Auto) 65.5 % Lymphocytes (%) (Auto) 23.7 % Monocytes (%) (Auto) 8.5 % Eosinophils (%) (Auto) 2.0 % Basophils (%) (Auto) 0.2 % Neutrophils # (Auto) 7.12 K/uL (1.4-6.5) Lymphocytes # (Auto) 2.57 K/uL (1.2-3.4) Monocytes # (Auto) 0.92 K/uL (0.11-0.59) Eosinophils # (Auto) 0.22 K/uL (0-0.5) Basophils # (Auto) 0.02 K/uL (0-0.2) RDW Standard Deviation 41.6 fL (36.4-46.3) RDW Coefficient of Variation 12.5 % (11.5-14.5) Immature Granulocyte % (Auto) 0.1 % Immature Granulocyte # (Auto) 0.01 K/uL (0.00-0.02) Urine Color YELLOW Urine Appearance CLEAR (CLEAR) Urine pH 5.5 (4.5-7.5) Urine Specific [place] 1.014 (1.000-1.030) Urine Protein NEG (NEG) Urine Glucose (UA) NEG (NEG) Urine Ketones NEG (NEG) Urine Occult Blood NEG (NEG) Urine Nitrite NEG (NEG) Urine Bilirubin NEG (NEG) Urine Urobilinogen NEG (NEG) Urine Leukocyte Esterase NEG (NEG) Anion Gap 7.0 mmol/L (3-11) Est Creatinine Clear Calc Drug Dose 110.1 ml/min Estimated GFR () 123.2 Estimated GFR (Non- 106.3 BUN/Creatinine Ratio 10.1 (10-20) Calcium Level 9.5 mg/dl (8.5-10.1) Total Bilirubin 0.3 mg/dl (0.2-1) Direct Bilirubin < 0.1 mg/dl (0-0.2) Aspartate Amino Transf (AST/SGOT) 14 U/L (15-37) Alanine Aminotransferase (ALT/SGPT) 21 U/L (12-78) Alkaline Phosphatase 98 U/L (45-117) Total Protein 8.1 gm/dl (6.4-8.2) Albumin 4.3 gm/dl (3.4-5.0) Lipase 94 U/L (73-393) Human Chorionic Gonadotropin, Qual NEG (NEG) Medications Administered Medications (Trade) Dose Ordered Sig/Radha Route Start Time Stop Time Status Last Admin Dose Admin Morphine Sulfate (MoRPHine SULFATE INJ) 4 mg NOW STAT IV 07/24/17 22:07 07/24/17 22:10 DC 07/24/17 22:56 4 MG Ondansetron HCl (Zofran Inj) 4 mg NOW STAT IV 07/24/17 22:07 07/24/17 22:10 DC 07/24/17 22:53 4 MG Sodium Chloride 1,000 ml @ 999 mls/hr Q1H1M STAT IV 07/24/17 22:07 07/24/17 23:07 DC 07/24/17 22:52 999 MLS/HR Sodium Chloride 1,000 ml @ 125 mls/hr Q8H STAT IV 07/24/17 22:07 07/25/17 06:06 07/24/17 22:51 125 MLS/HR Diphenhydramine HCl (Benadryl Inj) 25 mg NOW STAT IV 07/24/17 23:02 07/24/17 23:04 DC 07/24/17 23:08 25 MG ED Course Prior records/ancillary studies reviewed. Triage Nursing notes reviewed. Additional history obtained from family. The patient's history was concerning for abdominal pain. Differential diagnosis: Etiologies such as appendicitis, diverticulitis, PUD, biliary pathology, UTI, pancreatitis, obstruction, mesenteric ischemia, aortic pathology, infections, inflammatory bowel disease, renal colic, as well as others were entertained. Physical examination findings: As above. ER treatment provided: Morphine, Zofran, IV fluids. Patient got a rash from the morphine and was given Benadryl. This is a marked as an allergy. Symptoms completely resolved. On reassessment the patient felt better. Diagnostics interpreted by me: The labs revealed mild leukocytosis. Negative urine Imaging studies: CT ABDOMEN & PELVIS: Normal appendix. Colonic diverticula without diverticulitis. No GI or urinary tract obstruction. Cholecystectomy. Intrauterine device is oriented transversely within the uterus Radiologist: John Tanner M.D. Exam and history seem consistent with abdominal pain with unclear etiology. Patient did not have an acute abdomen on exam. Patient was advised to follow- up with her family care Dr. for further workup with gastroenterology if warranted. She is well-appearing. She is tolerating fluids. She is advised to follow-up family care in a few days or here in the ER sooner for abdominal pain, fevers, vomiting, worsening signs or symptoms or as needed. By the evaluation outlined above emergent etiologies such as appendicitis, diverticulitis, PUD, biliary pathology, UTI, pancreatitis, obstruction, mesenteric ischemia, aortic pathology, infections, inflammatory bowel disease, renal colic, as well as others were deemed relatively unlikely. The pt informed about the findings as listed above. All questions were answered and pleased with the treatment. Return instructions were outlined and the patient was discharged in stable condition. Referral: The patient was referred back to their primary care physician for follow-up in 2 to 3 days for a recheck of the current condition. Case reviewed by attending. Medical Decision As above Medication Reconcilliation Current Medication List: was personally reviewed by me Blood Pressure Screening Patient's blood pressure: Normal blood pressure Impression Primary Impression: Right lower quadrant abdominal pain Departure Information Dispostion Home / Self-Care Condition GOOD Referrals Josh Avalos, D.O. (PCP) Patient Instructions [facility] Additional Instructions DO NOT drive, drink alcohol, operate machinery, or perform dangerous activities today. You were given medications in the ER that can affect your ability to safely function or operate a vehicle. Do not take morphine in the future as you had a localized reaction to this. Ibuprofen(Motrin, Advil) may be used for fever or pain. Use 600mg every six hours as needed. Take with food. Avoid using more than 2400mg in a 24 hour period. Do not use 2400mg per day for more than three consecutive days without physician direction. Prolonged inappropriate use can lead to stomach upset or ulcers. (AND/OR) Acetaminophen(Tylenol) may be used for fever or pain. Use 1000mg every six hours as needed. Avoid using more than 3000mg in a 24 hour period. Zofran 4mg: Take one every six hours as needed for nausea. Avoid alcohol, operating machinery or dangerous equipment, working on ladders or roofs, DRIVING , or situations where being under the influence may be dangerous. Rest and drink plenty of fluids as tolerated. Slow sips of water or sports drinks are recommended instead of large amounts all at once. Continue current medications. Once your stomach is settled start with a clear liquid diet (jello, soup broth, etc.) and then advance as tolerated. You should avoid full, heavy meals for about 24 hrs from the time your symptoms resolved. Return to the ER immediately for worsening or persistent abdominal pain, vomiting, fevers, chest pains, difficulty breathing, black or bloody stools, worsening of your condition, or as needed. Follow up with your primary physician in 24 hours for a recheck of your current condition. Recommend follow-up with gastroenterology if abdominal pains persist.
[2017-07-25 01:00] VITALS: BP 117/93
[2017-07-25] MEDS ORDERED: ONDANSETRON HOME PACK 4MG OD TAB PO ONE (01:00)
[2017-07-25 01:01] VITALS: PULSE 63; O2SAT 99
--- NOTE | 2017-07-25 07:16 | DIAGNOSTIC IMAGING REPORT ---
CT OF THE ABDOMEN AND PELVIS WITH CONTRAST CLINICAL HISTORY: Right lower quadrant pain. Evaluate for acute appendicitis. COMPARISON STUDY: CT of the abdomen and pelvis April 06, 2016 and abdominal series August 31, 2016. TECHNIQUE: Following IV administration of 93 mL of [id number], axial images of the abdomen and pelvis were obtained from the lung bases to the proximal femurs. Images were reviewed in the axial, sagittal, and coronal planes. IV contrast was administered without complication. A dose lowering technique was utilized adhering to the principles of ALARA. CT DOSE: 350.44 mGy.cm FINDINGS: The liver, spleen, adrenal glands, kidneys and pancreas are normal. There is no biliary ductal dilatation status post cholecystectomy. The caliber and wall thickness of small and large bowel are normal. The appendix is normal. An intrauterine device is in place. The ovaries are not enlarged. There is no free fluid. There is no lymphadenopathy. No suspicious skeletal lesions are present. Several peritoneal nodules are again noted. A 1.4 cm left subdiaphragmatic nodule has slightly increased in size. A few additional nodules have slightly increased in size. The majority of the nodules are unchanged. Many are partially calcified. IMPRESSION: 1. No acute process within the abdomen or pelvis. Normal appendix. 2. Redemonstration of numerous peritoneal/omental nodules. The majority of these are unchanged since CT of December 28, 2014 while several have mildly increased in size. The relative stability suggests a benign etiology and endometriosis is a consideration. Electronically signed by: Rhett Stanley M.D. 07/25/2017 7:14 AM Dictated Date/Time: 07/25/2017 7:03 AM
== END 2017-07-25 01:06 | disposition home or self-care (01) ==
LOC: C.EDB 21:47 → C.EDC 07-25 01:06
DX: R10.31 Right lower quadrant pain (principal); Z83.3 Family history of diabetes mellitus; Z82.49 Family history of ischemic heart disease and other diseases of the circulatory system; Z82.0 Family history of epilepsy and other diseases of the nervous system; F17.200 Nicotine dependence, unspecified, uncomplicated

== ENCOUNTER 2017-10-05 17:53 | Emergency (ER) | payer OTHER ==
[~2017-10-05] VITALS: Ht 160 cm; Wt 75.4 kg
[~2017-10-05 17:53] MED LIST changes: +BACL10TA PO; +HYDR-5688 PO
[2017-10-05 18:02] VITALS: BP 105/81; TEMP 36.9; Ht 160 cm; Wt 75.4 kg
[2017-10-05] MEDS ORDERED: SULF800T23 PO (18:18)
[2017-10-05 18:25] VITALS: PULSE 68; O2SAT 100
[2017-10-05] MEDS ORDERED: SEPTRA DS HOME PACK 1 EA VIAL PO ONE (18:30)
[2017-10-05] MEDS ORDERED: PHEN-876 PO (18:33)
[2017-10-05] MEDS ORDERED: IBUP-1451 PO (18:33)
[2017-10-05 18:37] LABS: MANUAL MICROSCOPIC REQUIRED? YES; REVIEW REQ? NO; URINE APPEARANCE CLEAR (CLEAR); URINE COLOR ORANGE; URINE SPECIFIC GRAVITY 1.018 (1.000-1.030)
[2017-10-05 18:41] LABS: SULFASALICYLIC ACID POS (NEG)
[2017-10-05 18:43] LABS: URINE BACTERIA 1+ (NEG); URINE RBC >30 /hpf (0-4); URINE WBC >30 /hpf (0-5)
[2017-10-05 18:47] LABS: PREG INTERNAL NEGATIVE QC NEG CLEAR BACKGROUND; PREG INTERNAL POSITIVE QC POS CONTROL LINE
--- NOTE | 2017-10-05 19:57 | EMERGENCY ROOM VISIT NOTE ---
History Report prepared by Aleshia: Aleena Hebert Under the Supervision of: Dr. Carter Muniz M.D. First contact with patient: 18:08 Chief Complaint: FLANK PAIN Stated Complaint: UTI History of Present Illness The patient is a 21 year old female who presents to the Emergency Room with complaints of constant left lower flank pain starting last night. The patient states that the pain moves from the back to the front. She states that it feels like her past UTIs. She describes the pain as achy. The patient currently rates her pain as an 8/10 in severity. She denies ever having a kidney stone before. The patient states that she took Azo to try to help her get through work. She notes that when she urinates it hard[place] and only a little comes out. The patient denies vaginal discharge, fever, and vomiting. The patient complains of a cough that sometimes has production of a substance. She notes that she is a smoker. The patient denies diarrhea. Source of History: patient Onset: last night Position: other (flank) Symptom Intensity: 8/10 Quality: ache, other (like past UTIs) Timing: constant Associated Symptoms: + cough, + urinary symptoms, No fevers, No vomiting, No diarrhea Note: The patient complains of a production of substance with her cough. The patient denies vaginal discharge. Review of Systems See HPI for pertinent positives & negatives. A total of 10 systems reviewed and were otherwise negative. Past Medical & Surgical Medical Problems: (1) Drug overdose (2) Dysuria (3) Urinary tract infection (4) Urinary tract infection Surgical Problems: (1) Hx of tonsillectomy Family History Cancer Diabetes mellitus Gallbladder disease Heart disease Hypertension Kidney disease Kidney stones Lung disease Seizures Social History Smoking Status: Current Every Day Smoker Alcohol Use: none Drug Use: none Marital Status: in relationship Housing Status: lives with significant other Occupation Status: employed Current/Historical Medications Scheduled Levonorgestrel (Iud) (Mirena), 20 MCG IU UD Sulfa/Trimethoprim (Bactrim Ds 800MG/160MG), 1 TAB PO BID Scheduled PRN Ibuprofen Tab (Motrin), 800 MG PO Q8H PRN for Pain Phenazopyridine HCl (Pyridium), 200 MG PO TID PRN for Urinary Pain Allergies Coded Allergies: Penicillins (Verified Allergy, Severe, ANAPHYLAXIS, 07/24/17) PER PROVIDER NOTE 01/02/17, PT NEVER WAS GIVEN PCN DUE TO FAMILY H/O ANAPHYLAXIS. SHE HAS TOLERATED KEFLEX AND ROCEPHIN Morphine (Verified Allergy, Mild, reddness to arm at IV site/itching, ) Adhesives (Verified Allergy, Unknown, HIVES, 07/24/17) Doxycycline (Unverified Adverse Reaction, Intermediate, Vomiting, 07/24/17) Uncoded Allergies: BETH (Allergy, Mild, GI SYMPTOMS, 04/20/15) Physical Exam Vital Signs Date Time Temp Pulse Resp B/P (MAP) Pulse Ox O2 Delivery O2 Flow Rate FiO2 10/05/17 18:25 68 18 100 10/05/17 18:02 36.9 81 16 105/81 96 Room Air Physical Exam Constitutional: Vital signs reviewed. Eyes: Pupils are equal round reactive to light. Conjunctiva are noninjected. ENT: Pharynx is clear without erythema or exudate. Mucous membranes are moist. Neck supple without meningeal signs. Respiratory: Clear to auscultation bilaterally. Breath sounds are equal bilaterally. Cardiovascular: Regular rate and rhythm. No rubs or gallops. GI: Soft, nondistended. Bowel sounds are present. Suprapubic tenderness. No guarding. Musculoskeletal: No peripheral edema. No CVA tenderness. Integumentary: No cyanosis. Neurological: The patient is awake and alert. No focal deficits. Psychiatric: Normal affect. Medical Decision & Procedures Laboratory Results Test 10/05/17 18:20 Urine Color ORANGE Urine Appearance CLEAR (CLEAR) Urine pH (4.5-7.5) Urine Specific Wilbur 1.018 (1.000-1.030) Urine Protein (NEG) Urine Glucose (UA) (NEG) Urine Ketones (NEG) Urine Occult Blood (NEG) Urine Nitrite (NEG) Urine Bilirubin (NEG) Urine Urobilinogen (NEG) Urine Leukocyte Esterase (NEG) Urine RBC >30 /hpf (0-4) Urine WBC >30 /hpf (0-5) Urine Epithelial Cells 10-20 /lpf (0-5) Urine Bacteria 1+ (NEG) Urine Test NEG (NEG) Laboratory results as reviewed by me. Medications Administered Medications (Trade) Dose Ordered Sig/Radha Route Start Time Stop Time Status Last Admin Dose Admin Trimethoprim/ Sulfamethoxazole (Sulfameth/ Trimeth Ds 800/ 160MG Home Pack) 1 homepack UD ONCE PO 10/05/17 18:30 10/05/17 18:31 DC 10/05/17 18:24 1 [facility] ED Course 1809: The patient was evaluated in room A10. A complete history and physical exam was performed. A limited bedside ultrasound was performed of the LLQ and shows no evidence of hydronephrosis. I discussed tonight's findings with her. She verbalized agreement of the treatment plan. The patient was discharged home. 1930: Ordered Trimethoprim/ Sulfamethoxazole 1 homepack PO. Medical Decision This is a 21-year-old female presents with left flank pain. Differential diagnosis includes UTI, pyelonephritis, strain, kidney stone. I did perform a limited focused review of portions of the patient's old chart on the electronic medical record. The patient was here in July for right lower abdominal pain. She had an unremarkable CT of her abdomen. There were no kidney stones. I did evaluate the patient as noted above. Patient is presenting with left flank pain which she states is similar to when she had prior UTIs. She also has urinary complaints including urgency and burning. She denies any vaginal discharge or bleeding or chance of . She did take Azo prior to arrival and so her urine analysis was difficult to interpret. She did have a negative test. She was treated with Bactrim and a urine culture was sent. She was discharged with a prescription for Bactrim. Medication Reconcilliation Current Medication List: was personally reviewed by me Blood Pressure Screening Patient's blood pressure: Normal blood pressure Blood pressure disposition: Did not require urgent referral Impression Primary Impression: UTI (urinary tract infection) Scribe Attestation The scribe's documentation has been prepared under my direct and personally reviewed by me in its entirety. I confirm that the note above accurately reflects all work, treatment, procedures, and medical decision making performed by me. Departure Information Dispostion Home / Self-Care Prescriptions Sulfa/Trimethoprim (Bactrim Ds 800MG/160MG) Tab 1 TAB PO BID, #10 TAB Prov: Carter Muniz M.D. 10/05/17 Referrals No Doctor, Assigned (PCP) Forms HOME CARE DOCUMENTATION FORM, IMPORTANT VISIT INFORMATION Patient Instructions My [facility] Additional Instructions You have been examined and treated today on an emergency basis only. This is not a substitute for, or an effort to provide, complete comprehensive medical care. It is impossible to recognize and treat all injuries or illnesses in a single emergency department visit. It is therefore important that you follow up closely with your physician. Call as soon as possible for an appointment. Return for worsening symptoms or if you develop fever, vomiting, or any other concerning symptoms. Problem Qualifiers Primary Impression: UTI (urinary tract infection) Urinary tract infection type: acute cystitis Hematuria presence: without hematuria Qualified Codes: N30.00 - Acute cystitis without hematuria
== END 2017-10-05 18:26 | disposition home or self-care (01) ==
LOC: C.EDB 17:54 → C.EDA 18:26
DX: N30.00 Acute cystitis without hematuria (principal); Z87.440 Personal history of urinary (tract) infections; F17.210 Nicotine dependence, cigarettes, uncomplicated; Z80.9 Family history of malignant neoplasm, unspecified; Z83.3 Family history of diabetes mellitus; Z83.79 Family history of other diseases of the digestive system; Z82.49 Family history of ischemic heart disease and other diseases of the circulatory system; Z84.1 Family history of disorders of kidney and ureter; Z83.6 Family history of other diseases of the respiratory system

== ENCOUNTER 2017-11-21 16:06 | Emergency (ER) | payer OTHER ==
[~2017-11-21] VITALS: Ht 160 cm; Wt 73.1 kg
[~2017-11-21 16:06] MED LIST changes: -BACL10TA PO; -HYDR-5688 PO; +IBUP-1451 PO; +PHEN-876 PO; +SULF800T23 PO
[2017-11-21 16:12] VITALS: TEMP 36.8; Ht 160 cm; Wt 73.1 kg
[2017-11-21] MEDS ORDERED: SODIUM CHLORIDE 0.9% 1000ML 1,000 ML IV STA (16:42)
[2017-11-21] MEDS ORDERED: ALBUT/IPRATROP 3MG/0.5MG NEB 3 ML VIAL INH STA (16:42)
[2017-11-21 17:20] LABS: BASO % 0.2 %; BASO ABS # 0.03 K/uL (0-0.2); EOS % 0.7 %; EOS ABS # 0.09 K/uL (0-0.5); HEMATOCRIT 45.2 % (37-47); HEMOGLOBIN 15.3 g/dL (12.0-16.0); IG# 0.03 K/uL (0.00-0.02); LYMPH % 23.9 %; LYMPH ABS # 2.99 K/uL (1.2-3.4); MEAN CELL VOLUME 92.1 fL (80-100); MEAN CORPUSCULAR HEMOGLOBIN 31.2 pg (25-34); MEAN CORPUSCULAR HGB CONC 33.8 g/dl (32-36); MEAN PLATELET VOLUME 9.8 fL (7.4-10.4); MONO % 5.8 %; MONO ABS # 0.72 K/uL (0.11-0.59); NEUT % 69.2 %; NEUT ABS # 8.65 K/uL (1.4-6.5); PLATELET COUNT 318 K/uL (130-400); RED CELL DISTRIBUTION WIDTH CV 13.4 % (11.5-14.5); RED CELL DISTRIBUTION WIDTH SD 44.9 fL (36.4-46.3); WHITE BLOOD COUNT 12.51 K/uL (4.8-10.8)
[2017-11-21 17:23] LABS: PTT PATIENT 26.4 SECONDS (21.0-31.0)
[2017-11-21 17:32] LABS: CALCIUM 8.9 mg/dl (8.5-10.1); CREATININE 0.99 mg/dl (0.60-1.20); POTASSIUM 3.5 mmol/L (3.5-5.1)
--- NOTE | 2017-11-21 18:00 | DIAGNOSTIC IMAGING REPORT ---
CHEST 2 VIEWS ROUTINE CLINICAL HISTORY: Respiratory distress. COMPARISON STUDY: 03/11/2017 FINDINGS: The cardiac and mediastinal contours are normal. There is no evidence of focal pulmonary consolidation. There is no evidence of failure. No pleural effusions are visualized.[ IMPRESSION: No active disease in the chest. Electronically signed by: Ayden Huff M.D. 11/21/2017 5:59 PM Dictated Date/Time: 11/21/2017 5:59 PM
[2017-11-21] MEDS ORDERED: VNTHFA/IN INH (18:27)
[2017-11-21] MEDS ORDERED: AZIT250T PO (18:27)
[2017-11-21] MEDS ORDERED: TRAM-453 PO (18:27)
[2017-11-21] MEDS ORDERED: BENZ100C18 PO (18:27)
[2017-11-21] MEDS ORDERED: PRED20TA2 PO (18:27)
[2017-11-21 18:42] VITALS: BP 121/62; PULSE 103; O2SAT 93
--- NOTE | 2017-11-21 23:40 | EMERGENCY ROOM VISIT NOTE ---
ED Visit Note First contact with patient: 16:26 Chief Complaint: Cough and rib pain. History of Present Illness: Ms. Cardoza is a 22-year-old white female who ambulates into the ED complaining of cough, rib pain and shortness of breath. Historically patient reports as a child she had a history of reactive airway disease; she has had no problem with her reactive airway disease since she's been out of her teens. Additionally she reports she's had previous episodes of bronchitis and pneumonia. Patient reports she started approximately 2 months ago with her current symptoms. She reports she started with a mild nonproductive cough that has gradually increased in intensity and severity. Over the last 7 days she reports her cough has worsened and she has developed left-sided anterior and posterior rib pain. Currently she reports that her cough as been productive of a green and yellowish sputum. Her cough is worse at night when she is lying flat. She has not taken any medication for her cough prior to arrival at the hospital here Currently she is complaining of anterior posterior rib pain in the area of ribs 6 through 8. She describes this as a sharp pain. She rates her discomfort 7/ 10. Her pain is nonradiating. Her pain worsens with deep inspiration, cough and palpation of the ribs. She is not identified any alleviating factors related to the pain. She has not taken any medications for pain prior to arrival at the hospital. Associated with her pain she reports intermittently when coughing she hears wheezing and she feels like her heart is racing. Lastly she does report that she uses estrogen and tobacco. She denies fevers, chills, sweats, skin eruptions, skin color changes, headaches , dizziness, lightheadedness, sore throat, neck pain/stiffness, hemoptysis, previous clots, claudication, cramping, recent surgery/inactivity/extended travel, abdominal pain, nausea, vomiting. Review of Systems: As noted above in history of present illness. All body systems were reviewed and found to be negative as noted above. Past Medical History: Unspecified skin disorder, unspecified urinary problems, unspecified uterine bleeding, status post cholecystectomy, tonsillectomy, adenoidectomy. Current Medications: Mirena IUD, Pyridium, Motrin. Allergies to Medications: Doxycycline, morphine, penicillin. Social History: Patient is currently employed; she feels safe in her home environment; she mitts to tobacco and alcohol use. Physical Examination: Vital Signs: Date Time Temp Pulse Resp B/P (MAP) Pulse Ox O2 Delivery O2 Flow Rate FiO2 11/21/17 18:42 103 14 121/62 93 11/21/17 18:00 97 21 105/52 94 Room Air 11/21/17 17:30 98 24 120/81 99 Room Air 11/21/17 17:11 85 12 103/71 98 Room Air 11/21/17 16:12 36.8 108 20 113/69 98 Room Air GENERAL: 22-year-old female in mild to moderate distress due to symptoms, nontoxic-appearing, afebrile and hemodynamically stable. NEUROLOGICAL: Awake, alert and oriented to person, place and time. Answering questions appropriately and following commands. Normal gait. Good hand eye coordination. SKIN: Warm, dry and pink. No soft tissue eruptions or trauma noted. HEENT: Atraumatic and normocephalic. No erythema or tenderness over the frontal or maxillary sinuses. Tympanic membranes were not erythematous or edematous. PERRLA. Sclera white and conjunctiva pink without drainage. No drainage from naris with audible congestion. Oral cavity moist and pink. Airway patent. Uvula is midline and no abscesses are seen. Pharynx is mildly erythematous, but not edematous. No pharyngeal exudates. Speech soft, but clear. No lymphadenopathy. Trachea midline. No jugular venous distention. No laryngeal tenderness. BACK: No tenderness over the bony spine. No meningismus. No CVA tenderness. Full range of motion of the cervical spine. THORAX: Lungs sounds are clear to auscultation, but decreased bilaterally in all alberto. Equal bilaterally with symmetrical chest wall. No wheezing, rales or rhonchi. Moderate tenderness over the left anterior lateral rib cage in the area of ribs 7 through 9. I do not appreciate any bony deformity, bony crepitus , swelling, ecchymosis or subcutaneous air. HEART: Tachycardic rate and rhythm. No gallops, rubs or murmurs are appreciated. PMI was not displaced. No lifts, heaves or thrills. ABDOMEN: Flat, soft and nontender. Positive bowel sounds in all quadrants. No guarding, rigidity or organomegaly. EXTREMITIES: Moves all extremities well on command and with purpose. All distal neurovascular statuses are intact and equal bilaterally. No calf tenderness or cords. ED Course: Patient is assessed as noted above. Patient's medication list was reviewed. Laboratory Testing: Test 11/21/17 16:45 11/21/17 16:53 Range/Units White Blood Count 12.51 4.8-10.8 K/uL Red Blood Count 4.91 4.2-5.4 M/uL Hemoglobin 15.3 12.0-16.0 g/dL Hematocrit 45.2 37-47 % Mean Corpuscular Volume 92.1 80-100 fL Mean Corpuscular Hemoglobin 31.2 25-34 pg Mean Corpuscular Hemoglobin Concent 33.8 32-36 g/dl Platelet Count 318 130-400 K/uL Mean Platelet Volume 9.8 7.4-10.4 fL Neutrophils (%) (Auto) 69.2 % Lymphocytes (%) (Auto) 23.9 % Monocytes (%) (Auto) 5.8 % Eosinophils (%) (Auto) 0.7 % Basophils (%) (Auto) 0.2 % Neutrophils # (Auto) 8.65 1.4-6.5 K/uL Lymphocytes # (Auto) 2.99 1.2-3.4 K/uL Monocytes # (Auto) 0.72 0.11-0.59 K/uL Eosinophils # (Auto) 0.09 0-0.5 K/uL Basophils # (Auto) 0.03 0-0.2 K/uL RDW Standard Deviation 44.9 36.4-46.3 fL RDW Coefficient of Variation 13.4 11.5-14.5 % Immature Granulocyte % (Auto) 0.2 % Immature Granulocyte # (Auto) 0.03 0.00-0.02 K/uL Prothrombin Time 11.0 9.0-12.0 SECONDS Prothromb Time International Ratio 1.0 0.9-1.1 Activated Partial Thromboplast Time 26.4 21.0-31.0 SECONDS Partial Thromboplastin Ratio 1.0 Sodium Level 139 136-145 mmol/L Potassium Level 3.5 3.5-5.1 mmol/L Chloride Level 105 98-107 mmol/L Carbon Dioxide Level 30 21-32 mmol/L Anion Gap 4.0 3-11 mmol/L Blood Urea Nitrogen 11 7-18 mg/dl Creatinine 0.99 0.60-1.20 mg/dl Est Creatinine Clear Calc Drug Dose 84.6 ml/min Estimated GFR () 93.1 Estimated GFR (Non- 80.3 BUN/Creatinine Ratio 11.4 10-20 Random Glucose 90 70-99 mg/dl Calcium Level 8.9 8.5-10.1 mg/dl Bedside D-Dimer 101 0-450 ng/mlFEU Bedside Troponin I < 0.030 0-0.045 ng/ml EKG: Was read by myself and shows normal sinus rhythm with a ventricular rate of 78 bpm. Normal intervals, complexes and axes. No acute ST changes. This was compared to previous from April 2015 and she has resolution of nonspecific T- wave abnormalities and prolonged QT segment. Chest X-Rays: Were read by myself and the radiologist showing no acute infiltrates, effusions or pneumothorax. Normal heart silhouette and bony anatomy. This was compared to previous and no acute changes were noted. Patient was hydrated with normal saline and she received an albuterol/Atrovent nebulizer breathing treatment and 60 mg of prednisone by mouth. Patient was reassessed multiple times during her stay in the emergency department; on first reassessment after her albuterol/Atrovent nebulizer breathing treatment she showed improved air movement in all alberto and continued to have no wheezing. Patient's case was reviewed with Dr. Shea; we agreed on diagnostic approach, treatment, disposition and plan per Patient was educated about today's findings and instructed on her treatment plan ; she verbalizes understanding and agreement with this plan. Clinical Impression: Acute bronchitis. Decision-Making: A aleisha my differential diagnosis I considered acute bronchitis , pulmonary embolism, rib fracture, costochondritis, pneumonia and other causes. Disposition: Patient discharged to home in stable condition; prior to departure she was reassessed and subjectively reported she was feeling much better and rated her overall discomfort 6/10 and reported resolution of shortness of breath and felt like her cough was improving. Plan: Patient was placed on a sliding pain medication scale of acetaminophen and Ultram; she was given appropriate controlled substances precaution and her name was checked on the state database and no red flags were noted. Patient was prescribed an albuterol inhaler with spacer and encouraged to use 2 puffs every 6 hours for 5 days and as needed for shortness of breath/wheezing or severe coughing episode. Patient was prescribed prednisone 60 mg once a day for 4 additional days. Patient was prescribed Tessalon Perles 100 mg every 8 hours as needed for cough. Patient is encouraged to stay well-hydrated. Patient was encouraged to use a humidifier or vaporizer in her bedroom and nighttime. Patient was encouraged to avoid tobacco and estrogen use as it increases risk of blood clots and she was encouraged to stop smoking until resolution of her symptoms. Patient is encouraged to follow-up with her PCP for recheck in 2-3 days. Patient is encouraged return ED for worsening symptoms, fevers, coughing up blood or any new/concerning symptoms.
== END 2017-11-21 16:18 | disposition home or self-care (01) ==
LOC: C.EDB 16:09 → C.EDD 16:18
DX: J20.9 Acute bronchitis, unspecified (principal); Z87.01 Personal history of pneumonia (recurrent); Z90.49 Acquired absence of other specified parts of digestive tract; Z90.89 Acquired absence of other organs; Z72.0 Tobacco use

== ENCOUNTER 2017-11-25 22:21 | Emergency (ER) | payer OTHER ==
[~2017-11-25] VITALS: Ht 160 cm; Wt 73.3 kg
[~2017-11-25 22:21] MED LIST changes: +AZIT250T PO; +BENZ100C18 PO; +LEVO1IUD2 IU; -LEVOIUD IU; +PRED20TA2 PO; -SULF800T23 PO; +TRAM-453 PO; +VNTHFA/IN INH
[2017-11-25 22:38] VITALS: TEMP 38.2; Ht 160 cm; Wt 73.3 kg
[2017-11-25] MEDS ORDERED: ONDANSETRON INJ 2 MG/ML 2 ML VIAL IV STA (23:14)
[2017-11-25] MEDS ORDERED: SODIUM CHLORIDE 0.9% 1000ML 2,000 ML IV STA (23:14)
[2017-11-25] MEDS ORDERED: ACETAMINOPHEN 500 MG TAB PO STA (23:14)
[2017-11-25] MEDS ORDERED: FAMOTIDINE 20MG/5ML IV PUSH IV STA (23:14)
[2017-11-25] MEDS ORDERED: ALBUT/IPRATROP 3MG/0.5MG NEB 3 ML VIAL INH STA (23:20)
[2017-11-26 00:04] LABS: BASO % 0.1 %; BASO ABS # 0.01 K/uL (0-0.2); EOS % 0.1 %; EOS ABS # 0.01 K/uL (0-0.5); HEMATOCRIT 43.2 % (37-47); HEMOGLOBIN 14.9 g/dL (12.0-16.0); IG# 0.03 K/uL (0.00-0.02); LYMPH % 9.9 %; LYMPH ABS # 0.87 K/uL (1.2-3.4); MEAN CELL VOLUME 90.4 fL (80-100); MEAN CORPUSCULAR HEMOGLOBIN 31.2 pg (25-34); MEAN CORPUSCULAR HGB CONC 34.5 g/dl (32-36); MEAN PLATELET VOLUME 9.9 fL (7.4-10.4); MONO % 12.8 %; MONO ABS # 1.12 K/uL (0.11-0.59); NEUT % 76.8 %; NEUT ABS # 6.74 K/uL (1.4-6.5); PLATELET COUNT 247 K/uL (130-400); RED CELL DISTRIBUTION WIDTH CV 13.3 % (11.5-14.5); RED CELL DISTRIBUTION WIDTH SD 44.2 fL (36.4-46.3); WHITE BLOOD COUNT 8.78 K/uL (4.8-10.8)
[2017-11-26 00:22] LABS: CALCIUM 8.4 mg/dl (8.5-10.1); CREATININE 0.87 mg/dl (0.60-1.20); POTASSIUM 3.7 mmol/L (3.5-5.1)
[2017-11-26 00:31] LABS: INFLUENZA B ANTIGEN Neg for Influ B (NEG)
[2017-11-26] MEDS ORDERED: ALBUTEROL HFA 8 GM INHALER INH STA (01:12)
[2017-11-26] MEDS ORDERED: ALBUT/IPRATROP 3MG/0.5MG NEB 3 ML VIAL INH STA (01:12)
[2017-11-26 01:51] VITALS: BP 115/65; PULSE 131; O2SAT 93
--- NOTE | 2017-11-26 05:33 | EMERGENCY ROOM VISIT NOTE ---
History First contact with patient: 22:59 Chief Complaint: FLU LIKE SX Stated Complaint: VOMITING,NAUSEA,BODY ACHES,FEVER History of Present Illness The patient is a 22 year old female who presents to the Emergency Room with complaints of cough, congestion, fever, chills, bodyache, nausea and vomiting for the past day. No flu shot. Patient continues to smoke. Patient denies chest pain, dyspnea, abdominal pain, neck stiffness, sore throat. No flu shot. Review of Systems See HPI for pertinent positives & negatives. A total of 10 systems reviewed and were otherwise negative. Past Medical/Surgical History Medical Problems: (1) Drug overdose (2) Dysuria (3) Urinary tract infection (4) Urinary tract infection Surgical Problems: (1) Hx of tonsillectomy Family History Cancer Diabetes mellitus Gallbladder disease Heart disease Hypertension Kidney disease Kidney stones Lung disease Seizures Social History Smoking Status: Unknown if Ever Smoked Alcohol Use: none Drug Use: none Marital Status: in relationship Housing Status: lives with significant other Occupation Status: employed Current/Historical Medications Scheduled Albuterol Hfa (Ventolin Hfa), 2 PUFFS INH QID Azithromycin (Zithromax), 500 MG PO DAILY Levonorgestrel (Iud) (Mirena), 20 MCG IU UD Prednisone (Prednisone Tab), 3 TAB PO DAILY Scheduled PRN Benzonatate (Tessalon Perles), 100 MG PO Q8 PRN for Cough Ibuprofen Tab (Motrin), 800 MG PO Q8H PRN for Pain Phenazopyridine HCl (Pyridium), 200 MG PO TID PRN for Urinary Pain Physical Exam Vital Signs Date Time Temp Pulse Resp B/P (MAP) Pulse Ox O2 Delivery O2 Flow Rate FiO2 11/26/17 01:51 131 20 115/65 93 11/26/17 00:34 124 20 113/67 93 Room Air 11/25/17 22:38 38.2 130 20 117/71 96 Room Air Physical Exam VITALS: Vitals are noted on the nurse's note and reviewed by myself. Vital signs febrile GENERAL: Pleasant female coughing, in no acute distress, nondiaphoretic, well- developed well-nourished. SKIN: The skin was without rashes, erythema, edema, or bruising. There is no tenting of the skin. Capillary reflex less than 2 seconds. HEAD: Normocephalic atraumatic. EARS: External auditory canals clear, tympanic membranes pearly mullen without erythema or effusion bilaterally. EYES: Pupils equal round and reactive to light and accommodation. Conjunctivae without injection, sclerae without icterus. Extraocular movements intact. NOSE: Patent, turbinates without inflammation or discharge. No sinus tenderness MOUTH: Mucous membranes mildly dry. Pharynx without erythema or exudate. Uvula midline. Airway patent. Tongue does not deviate. NECK: Supple without nuchal rigidity. No lymphadenopathy. No thyromegaly. Cervical spine is nontender. No JVD. No meningeal signs HEART: Tachycardic rate and rhythm without murmurs gallops or rubs. LUNGS: Mild diffuse end expiratory wheezes, without rales or rhonchi. No dullness to percussion. No retractions or accessory muscle use. ABDOMEN: Positive bowel sounds x 4. Normal tympanic percussion. Soft, nontender, without masses or organomegaly. Sandoval sign negative. No guarding or rebound tenderness. MUSCULOSKELETAL: No muscle atrophy, erythema, or edema noted. NEURO: Patient was alert and oriented to person place and time. Normal sensation to light and sharp touch. No focal neurological deficits. Medical Decision & Procedures Laboratory Results 11/25/17 23:45 Red Blood Count 4.78, Mean Corpuscular Volume 90.4, Mean Corpuscular Hemoglobin 31.2, Mean Corpuscular Hemoglobin Concent 34.5, Mean Platelet Volume 9.9, Neutrophils (%) (Auto) 76.8, Lymphocytes (%) (Auto) 9.9, Monocytes (%) (Auto) 12.8, Eosinophils (%) (Auto) 0.1, Basophils (%) (Auto) 0.1, Neutrophils # (Auto ) 6.74, Lymphocytes # (Auto) 0.87, Monocytes # (Auto) 1.12, Eosinophils # (Auto ) 0.01, Basophils # (Auto) 0.01 11/25/17 23:45 Test 11/25/17 23:45 11/25/17 23:48 White Blood Count 8.78 K/uL (4.8-10.8) Red Blood Count 4.78 M/uL (4.2-5.4) Hemoglobin 14.9 g/dL (12.0-16.0) Hematocrit 43.2 % (37-47) Mean Corpuscular Volume 90.4 fL (80-100) Mean Corpuscular Hemoglobin 31.2 pg (25-34) Mean Corpuscular Hemoglobin Concent 34.5 g/dl (32-36) Platelet Count 247 K/uL (130-400) Mean Platelet Volume 9.9 fL (7.4-10.4) Neutrophils (%) (Auto) 76.8 % Lymphocytes (%) (Auto) 9.9 % Monocytes (%) (Auto) 12.8 % Eosinophils (%) (Auto) 0.1 % Basophils (%) (Auto) 0.1 % Neutrophils # (Auto) 6.74 K/uL (1.4-6.5) Lymphocytes # (Auto) 0.87 K/uL (1.2-3.4) Monocytes # (Auto) 1.12 K/uL (0.11-0.59) Eosinophils # (Auto) 0.01 K/uL (0-0.5) Basophils # (Auto) 0.01 K/uL (0-0.2) RDW Standard Deviation 44.2 fL (36.4-46.3) RDW Coefficient of Variation 13.3 % (11.5-14.5) Immature Granulocyte % (Auto) 0.3 % Immature Granulocyte # (Auto) 0.03 K/uL (0.00-0.02) Anion Gap 7.0 mmol/L (3-11) Est Creatinine Clear Calc Drug Dose 96.4 ml/min Estimated GFR () 108.8 Estimated GFR (Non- 93.9 BUN/Creatinine Ratio 11.7 (10-20) Calcium Level 8.4 mg/dl (8.5-10.1) Human Chorionic Gonadotropin, Qual NEG (NEG) Influenza Type A Antigen POS for Influ A (NEG) Influenza Type B Antigen Neg for Influ B (NEG) Medications Administered Medications (Trade) Dose Ordered Sig/Radha Route Start Time Stop Time Status Last Admin Dose Admin Sodium Chloride 2,000 ml @ 999 mls/hr Q2H1M STAT IV 11/25/17 23:14 11/26/17 01:14 DC 11/25/17 23:48 999 MLS/HR Acetaminophen (Tylenol Tab) 1,000 mg NOW STAT PO 11/25/17 23:14 11/25/17 23:16 DC 11/25/17 23:48 1,000 MG Ondansetron HCl (Zofran Inj) 4 mg NOW STAT IV 11/25/17 23:14 11/25/17 23:16 DC 11/25/17 23:47 4 MG Famotidine (Pepcid 20mg Iv Push) 20 mg ONE STAT IV 11/25/17 23:14 11/25/17 23:16 DC 11/25/17 23:47 20 MG Albuterol/ Ipratropium (Duoneb) 3 ml NOW STAT INH 11/25/17 23:20 11/25/17 23:21 DC 11/25/17 23:47 3 ML Albuterol/ Ipratropium (Duoneb) 3 ml NOW STAT INH 11/26/17 01:12 11/26/17 01:13 DC 11/26/17 01:15 3 ML Albuterol (Ventolin Hfa Inhaler) 2 puffs ONE STAT INH 11/26/17 01:12 11/26/17 01:13 DC 11/26/17 01:26 2 PUFFS ED Course Prior records/ancillary studies reviewed. Triage Nursing notes reviewed. The patient's history was concerning for fever. Differential diagnosis: Etiologies such as viral syndrome, otitis, pharyngitis, pneumonia, influenza, meningitis, urinary tract infection, sepsis, bacteremia, as well as others were entertained. Physical examination: Patient is alert and mildly ill-appearing with audible wheeze ER treatment provided: Nebulizer, steroids, fluids, Tylenol On reassessment the patient felt better. Diagnostics interpreted by me: The labs revealed positive influenza A Imaging studies: Chest x-ray with no acute consolidation, pneumothorax or free air per my interpretation This appears to be consistent with Influenza A. Patient felt better to be medicated as above. She requested to leave.I felt this was reasonable. I believe some of her tachycardia is from the nebulizers. Patient had no pneumonia. No signs of meningitis. No signs of airway compromise. She is advised to rest, take medications as directed, stay well-hydrated and follow-up family care in a few days or here in the ER sooner for fevers, lethargy, vomiting, worsening signs or symptoms or as needed. She is advised to stay at home and is a 24 hours fever free as she is highly contagious. By the evaluation outlined above emergent etiologies such as otitis, pharyngitis, pneumonia, meningitis, urinary tract infection, sepsis, bacteremia, as well as others were deemed relatively unlikely. The pt informed about the findings as listed above. All questions were answered and pleased with the treatment. Return instructions were outlined and the patient was discharged in stable condition. Case reviewed with my attending Referral: The patient was referred back to their primary care physician for follow-up in 2 to 3 days for a recheck of the current condition. Medical Decision As above Medication Reconcilliation Current Medication List: was personally reviewed by me Blood Pressure Screening Patient's blood pressure: Normal blood pressure Impression Primary Impression: Influenza A Additional Impressions: Acute bronchitis Vomiting Dehydration Departure Information Dispostion Home / Self-Care Condition GOOD Forms HOME CARE DOCUMENTATION FORM, Work Instructions, Return To Work: 3 days IMPORTANT VISIT INFORMATION Patient Instructions My [facility], ED Flu Additional Instructions You are highly contagious. You should stay at home until you're 24 hours fever free. Acetaminophen(Tylenol) may be used for fever or pain. Use 1000mg every six hours as needed. Avoid using more than 3000mg in a 24 hour period. (AND/OR) Ibuprofen(Motrin, Advil) may be used for fever or pain. Use 600mg every six hours as needed. Take with food. Avoid using more than 2400mg in a 24 hour period. Do not use 2400mg per day for more than three consecutive days without physician direction. Prolonged inappropriate use can lead to stomach upset or ulcers. Afrin nasal spray: 2-3 sprays to each nostril twice daily as needed for congestion. Do not use for more than 3-4 days because it can lead to worsening rebound congestion. Pseudoephedrine(Sudaphed): 30-60mg every 6 hours as needed for nasal congestion. Do not take this with other stimulant products or supplements. Albuterol Inhaler: Take 2 puffs four times daily for seven days, then as needed. Rest and drink plenty of fluids. Controlling your fever with Tylenol and Ibuprofen as above will make you feel better. Wash your hands after nose blowing, sneezing, or coughing. Most germs are spread through contact, therefore improper hygiene may result in your close contacts and loved ones becoming ill just like you. Continue current medications. Return to the ER for severe headache, neck stiffness, chest pain, difficulty breathing, fevers, vomiting, worsening of your condition, or as needed. Follow up with your primary physician this week for a recheck of your current condition. Work Instructions Return To Work: 3 days Problem Qualifiers
--- NOTE | 2017-11-26 06:32 | DIAGNOSTIC IMAGING REPORT ---
CHEST 2 VIEWS ROUTINE CLINICAL HISTORY: cough/fever dyspnea COMPARISON STUDY: 11/21/2017 FINDINGS: The bones soft tissues and hemidiaphragms are normal. The cardiomediastinal silhouette is normal. The lungs are clear. The pulmonary vasculature is normal. IMPRESSION: Negative chest. The above report was generated using voice recognition software. It may contain grammatical, syntax or spelling errors. Electronically signed by: Ryan Mancera M.D. 11/26/2017 6:31 AM Dictated Date/Time: 11/26/2017 6:30 AM
== END 2017-11-26 01:45 | disposition home or self-care (01) ==
LOC: C.EDB 22:22
DX: J11.1 Influenza due to unidentified influenza virus with other respiratory manifestations (principal); J20.9 Acute bronchitis, unspecified; R11.10 Vomiting, unspecified; E86.0 Dehydration; F17.200 Nicotine dependence, unspecified, uncomplicated; Z87.440 Personal history of urinary (tract) infections; Z90.89 Acquired absence of other organs; Z83.3 Family history of diabetes mellitus; Z82.49 Family history of ischemic heart disease and other diseases of the circulatory system; Z84.1 Family history of disorders of kidney and ureter; Z82.0 Family history of epilepsy and other diseases of the nervous system

== ENCOUNTER 2018-02-26 18:07 | Emergency (ER) | payer OTHER ==
[~2018-02-26] VITALS: Ht 162.6 cm; Wt 71.8 kg
[~2018-02-26 18:07] MED LIST changes: -BENZ100C18 PO; -IBUP-1451 PO; -TRAM-453 PO; -VNTHFA/IN INH
[2018-02-26 18:10] VITALS: TEMP 36.8; Ht 162.6 cm; Wt 71.8 kg
[2018-02-26] MEDS ORDERED: IBUP-1451 PO (18:33)
[2018-02-26] MEDS ORDERED: CEFTRIAXONE SOD INJ 250 MG/ML VIAL IM STA (18:41)
[2018-02-26] MEDS ORDERED: AZITHROMYCIN 250 MG TAB PO ONE (18:45)
[2018-02-26] MEDS ORDERED: METR-163 PO (18:45)
--- NOTE | 2018-02-26 18:49 | EMERGENCY ROOM VISIT NOTE ---
History Report prepared by Aleshia: David Chicas Under the Supervision of: Dr. Valencia Armenta M.D. First contact with patient: 18:14 Chief Complaint: PELVIC PAIN Stated Complaint: POSSIBLE BV/UTI History of Present Illness The patient is a 22 year old female who presents to the Emergency Room with complaints of intermittent pelvic cramping that began a week ago. She rates her discomfort as a 3/10 in severity. The patient reports that she has been experiencing cramping after sex for the last week. She also reports she has noticed some vaginal odor. She states that she is worried she has bacterial vaginosis since she has had it in the past. The patient denies denies vaginal discharge, itching or burning, fever, and urinary symptoms. Per the patient's report she has a history gonorrhea in December of 2016 and multiple UTIs. She also reports a history of a diverticulitis, diverticulosis, appendectomy, anemia and hemorrhaging. The patient states that three years ago she came to the ER for her hemorrhaging issues. She reports that she saw an [facility] who gave the patient an IUD. The patient states that since the IUD she has not had a single menstrual period and her anemia is improved. Source of History: patient Onset: a week ago Position: other (pelvis) Symptom Intensity: 3/10 Quality: cramping Timing: intermittent Associated Symptoms: No fevers, No urinary symptoms Note: Associated symptoms: vaginal odor Denies vaginal itching or burning, vaginal discharge Review of Systems See HPI for pertinent positives & negatives. A total of 10 systems reviewed and were otherwise negative. Past Medical & Surgical Medical Problems: (1) Drug overdose (2) Dysuria (3) Urinary tract infection (4) Urinary tract infection Surgical Problems: (1) Hx of tonsillectomy Family History Cancer Diabetes mellitus Gallbladder disease Heart disease Hypertension Kidney disease Kidney stones Lung disease Seizures Social History Smoking Status: Current Every Day Smoker Alcohol Use: none Drug Use: none Marital Status: in relationship Housing Status: lives with significant other Occupation Status: employed Current/Historical Medications Scheduled Levonorgestrel (Iud) (Mirena), 20 MCG IU UD Metronidazole (Flagyl), 500 MG PO BID Omeprazole (Prilosec), 20 MG PO DAILY Scheduled PRN Albuterol Hfa (Ventolin Hfa), 2 PUFFS INH QID PRN for Wheezing Ibuprofen Tab (Motrin), 800 MG PO Q8H PRN for Pain Ondansetron Hcl (Zofran), 1 TAB PO PRN UD PRN for Nausea Allergies Coded Allergies: Penicillins (Verified Allergy, Severe, ANAPHYLAXIS, 07/24/17) PER PROVIDER NOTE 01/02/17, PT NEVER WAS GIVEN PCN DUE TO FAMILY H/O ANAPHYLAXIS. SHE HAS TOLERATED KEFLEX AND ROCEPHIN Morphine (Verified Allergy, Mild, reddness to arm at IV site/itching, ) Adhesives (Verified Allergy, Unknown, HIVES, 07/24/17) Doxycycline (Unverified Adverse Reaction, Intermediate, Vomiting, 07/24/17) Uncoded Allergies: BETH (Allergy, Mild, GI SYMPTOMS, 04/20/15) Physical Exam Vital Signs Date Time Temp Pulse Resp B/P (MAP) Pulse Ox O2 Delivery O2 Flow Rate FiO2 02/26/18 20:19 75 18 115/76 99 02/26/18 20:00 75 18 115/76 95 Room Air 02/26/18 18:10 36.8 91 16 141/95 99 Room Air Physical Exam Vital signs reviewed. General: Well-appearing 22 year old female, in no significant distress. Abdomen: Soft, nontender, nondistended, positive bowel sounds. Musculoskeletal: Atraumatic, no peripheral edema. Neurologic: Patient awake alert and oriented x 3. Skin: Warm, dry, no rash Pelvic: Moderate amount of thick white vaginal discharge. IUD strings are visualized protruding through the cervical os. No external lesions. No cervical motion tenderness. Medical Decision & Procedures Laboratory Results Test 02/26/18 18:38 02/26/18 20:09 Urine Color YELLOW Urine Appearance CLEAR (CLEAR) Urine pH 5.0 (4.5-7.5) Urine Specific Rotan 1.026 (1.000-1.030) Urine Protein NEG (NEG) Urine Glucose (UA) NEG (NEG) Urine Ketones TRACE (NEG) Urine Occult Blood NEG (NEG) Urine Nitrite NEG (NEG) Urine Bilirubin NEG (NEG) Urine Urobilinogen NEG (NEG) Urine Leukocyte Esterase NEG (NEG) Urine Test NEG (NEG) Laboratory results per my review. Medications Administered Medications (Trade) Dose Ordered Sig/Radha Route Start Time Stop Time Status Last Admin Dose Admin Azithromycin (Zithromax Tab) 500 mg NOW ONCE PO 4/12/18 18:45 02/26/18 18:46 DC 02/26/18 19:14 500 MG Ceftriaxone Sodium 250 mg/ Syringe 1 ml @ 0 mls/min NOW STAT IM 02/26/18 18:53 02/26/18 18:54 DC 02/26/18 19:15 1 MLS/MIN ED Course 1819: Past medical records reviewed. The patient was evaluated in room B02. A complete history and physical examination was performed. 1828: I discussed findings with the patient. She verbalized agreement of the treatment plan. The patient was discharged home. 1840: Ordered Rocephin Injection 250 mg IM. 1844: Ordered Azithromycin 500 mg PO. 1852: Ordered Ceftriaxone Sodium 250 mg/Syringe 1 ml IM. Medical Decision Differential diagnosis: Sexually transmitted disease, yeast infection, bacterial vaginosis, UTI, cervicitis, PID. This pt was evaluated and appeared to be in no distress. Pelvic exam reveals a moderate amount of white d/c. Pt has h/o STD and IUD is in place. She was covered with azithromycin, ceftriaxone and given Rx for flagyl as she is considered higher risk at this time. Pt was advised to avoid unprotected intercourse until cx return. Pt was reassured and asked to f/u with OBGYN. She will return to the ED for worsening of symptoms or any medical concerns. Medication Reconcilliation Current Medication List: was personally reviewed by me Blood Pressure Screening Patient's blood pressure: Elevated blood pressure Blood pressure disposition: Elevated BP felt to be situational Impression Primary Impression: Vaginitis Scribe Attestation The scribe's documentation has been prepared under my direction and personally reviewed by me in its entirety. I confirm that the note above accurately reflects all work, treatment, procedures, and medical decision making performed by me. Departure Information Dispostion Home / Self-Care Prescriptions Metronidazole (Flagyl) 500 Mg Tab 500 MG PO BID for 7 Days, #14 TAB Prov: Valencia Armenta M.D. 02/26/18 Referrals Josh Avalos D.OEunice (PCP) Forms HOME CARE DOCUMENTATION FORM, IMPORTANT VISIT INFORMATION, WORK / SCHOOL INSTRUCTIONS Patient Instructions My [facility] Additional Instructions Diagnosis: Vaginitis Avoid unprotected sexual intercourse until your cultures have returned. Flagyl 500 mg twice daily for 7 days. Do not drink alcohol while taking this medication. Follow-up with your W[facility]HER in 1-2 weeks for reevaluation. Return to the emergency department for worsening of symptoms or any medical concerns per
[2018-02-26] MEDS ORDERED: CEFTRIAXONE SOD INJ 250 MG in SYRINGE 0 ML IM STA (18:53)
[2018-02-26] MEDS ORDERED: VNTHFA/IN INH (19:44)
[2018-02-26] MEDS ORDERED: OMEP20CA9 PO (19:44)
[2018-02-26] MEDS ORDERED: ONDA4TAB46 PO (19:44)
[2018-02-26 20:19] VITALS: BP 115/76; PULSE 75; O2SAT 99
== END 2018-02-26 20:20 | disposition home or self-care (01) ==
LOC: C.EDB 18:08
DX: N76.0 Acute vaginitis (principal); R03.0 Elevated blood-pressure reading, without diagnosis of hypertension; K57.90 Diverticulosis of intestine, part unspecified, without perforation or abscess without bleeding; K57.92 Diverticulitis of intestine, part unspecified, without perforation or abscess without bleeding; F17.200 Nicotine dependence, unspecified, uncomplicated; Z79.899 Other long term (current) drug therapy; Z97.5 Presence of (intrauterine) contraceptive device; Z86.19 Personal history of other infectious and parasitic diseases; Z88.0 Allergy status to penicillin; Z88.6 Allergy status to analgesic agent; Z88.1 Allergy status to other antibiotic agents; Z91.048 Other nonmedicinal substance allergy status; Z91.018 Allergy to other foods; Z83.3 Family history of diabetes mellitus; Z83.79 Family history of other diseases of the digestive system; Z82.49 Family history of ischemic heart disease and other diseases of the circulatory system; Z84.1 Family history of disorders of kidney and ureter; Z83.6 Family history of other diseases of the respiratory system; Z82.0 Family history of epilepsy and other diseases of the nervous system